=== PATIENT | male | born 1955 | race Caucasian/White ===

== ENCOUNTER 2016-07-18 12:01 | Emergency (ER) | payer OTHER ==
[~2016-07-18] VITALS: Ht 180.3 cm; Wt 107.5 kg
[~2016-07-18 12:01] MED LIST: ASPI325T45 PO; HYT/2 PO
[2016-07-18 12:08] VITALS: TEMP 36.6; Ht 180.3 cm; Wt 107.5 kg
[2016-07-18] MEDS ORDERED: PANT40TA PO (12:57)
--- NOTE | 2016-07-18 13:22 | EMERGENCY ROOM VISIT NOTE ---
History Report prepared by Gracyibmalick: Candace Castrejon Under the Supervision of: Gail LaguerreO. First contact with patient: 13:03 Chief Complaint: HEADACHE Stated Complaint: N, MIGRAINE, NUMBNESS IN FACE, HANDS, CHEST PAIN History of Present Illness The patient is a 60 year old male who presents to the Emergency Room with complaints of an improving headache that began last night. His headache worsened when he got to work this morning so he took 3 Advil. The pain was located at the top and sides of his head. While he was at work he also noticed tingling in his lips, tongue, hands, and feet. He did not have trouble moving his hands or feet. He became nauseated as well. To help the nausea, he took deep breaths. The patient decided to come to the ER when he developed dull midsternal chest pain and some shortness of breath. It does not radiate or worsen with exertion. He has not noticed his heart racing. The chest pain began about 4 hours ago. He still has a dull pain in his chest. He also notes that his hands "don't feel right." The patient notes that he has had a similar set of symptoms in 2010 that started with a headache. He is not medicated for headaches as he does not get them frequently. The patient has borderline high cholesterol. His blood pressure is typically normal if he sleeps well. He reports getting plenty of sleep last night. Denies fevers, visual changes, or other complaints. He takes aspirin on a routine basis, most recently this morning. He is not a smoker. . Source of History: patient Onset: last night Position: head Timing: other (improving) Associated Symptoms: + SOB, + chest pain, + nausea, No fevers Note: Other symptoms: tingling in lips, tongue, hands, feet Review of Systems See HPI for pertinent positives & negatives. A total of 10 systems reviewed and were otherwise negative. Past Medical & Surgical Surgical Problems: (1) Bladder mass (2) S/P tonsillectomy Family History FH: heart disease Hypertension Father of a CVA in his mid eighties Social History Smoking Status: Never Smoker Alcohol Use: occasionally Marital Status: Housing Status: lives with family Occupation Status: employed Current/Historical Medications Scheduled Pantoprazole (Protonix), 40 MG PO DAILY Terazosin Hcl (Hytrin), 4 MG PO DAILY Scheduled PRN Aspirin (Aspirin), 325 MG PO DIRECTED PRN for Pain Lorazepam (Ativan), 0.5 MG SL Q6 PRN for Anxiety/Agitation Tramadol Hcl (Ultram), 50 MG PO Q4H PRN for Pain Allergies Coded Allergies: Penicillins (Unverified Allergy, Unknown, UNKNOWN-CHILDHOOD ALLERGY, ) Physical Exam Vital Signs Date Time Temp Pulse Resp B/P Pulse Ox O2 Delivery O2 Flow Rate FiO2 07/18/16 15:10 67 18 149/98 97 07/18/16 14:20 67 18 149/98 95 Room Air 07/18/16 13:43 95 Room Air 07/18/16 13:43 70 18 141/98 95 Room Air 07/18/16 13:40 68 07/18/16 12:08 36.6 85 18 165/100 96 Room Air Physical Exam GENERAL: The patient is a pleasant, anxious appearing 60 year old male in no acute distress. VITALS: Afebrile, hypertensive, normal pulse oximetry on room air. EYES: PERRL, EOMI, conjunctiva clear EARS: TMs clear THROAT: No pharyngeal injection, exudates, or tonsillar hypertrophy. Airway is patent. NECK: Supple, nontender, no lymphadenopathy or nuchal rigidity. THORAX : Symmetrical and nontender to palpation without deformity or palpable crepitus. LUNGS : Clear without wheezing, rhonchi, or rales HEART: Regular rate and rhythm ABDOMEN: Soft and nontender without guarding, rigidity, or rebound tenderness. Bowel sounds are present in all 4 quadrants. There are no palpable masses or organomegaly. No CVA tenderness. Femoral pulses are symmetrical EXTREMITIES : Without deformity or point tenderness. There are no palpable cords, edema, or erythema.. NEUROLOGIC: Intact without focal deficits Medical Decision & Procedures ER Provider Diagnostic Interpretation: Radiology results as stated below per my review and radiologist interpretation: CHEST ONE VIEW PORTABLE CLINICAL HISTORY: Atypical chest pain and shortness of breath COMPARISON STUDY: 02/24/2016 FINDINGS: The cardiac and mediastinal contours are normal. There is no evidence of focal pulmonary consolidation. There is no evidence of failure. No pleural effusions are visualized.[ IMPRESSION: No active disease in the chest. Electronically signed by: Ha Clifford M.D. 07/18/2016 1:37 PM Dictated Date/Time: 07/18/2016 1:37 PM Laboratory Results 07/18/16 13:32 Red Blood Count 5.03, Mean Corpuscular Volume 88.7, Mean Corpuscular Hemoglobin 31.8, Mean Corpuscular Hemoglobin Concent 35.9, Mean Platelet Volume 10.4, Neutrophils (%) (Auto) 61.2, Lymphocytes (%) (Auto) 27.3, Monocytes (%) (Auto) 7.4, Eosinophils (%) (Auto) 3.3, Basophils (%) (Auto) 0.4, Neutrophils # (Auto) 2.82, Lymphocytes # (Auto) 1.26, Monocytes # (Auto) 0.34, Eosinophils # (Auto) 0.15, Basophils # (Auto) 0.02 07/18/16 13:32 Test 07/18/16 13:32 07/18/16 13:49 White Blood Count 4.61 K/uL (4.8-10.8) Red Blood Count 5.03 M/uL (4.7-6.1) Hemoglobin 16.0 g/dL (14.0-18.0) Hematocrit 44.6 % (42-52) Mean Corpuscular Volume 88.7 fL (80-100) Mean Corpuscular Hemoglobin 31.8 pg (25-34) Mean Corpuscular Hemoglobin Concent 35.9 g/dl (32-36) Platelet Count 174 K/uL (130-400) Mean Platelet Volume 10.4 fL (7.4-10.4) Neutrophils (%) (Auto) 61.2 % Lymphocytes (%) (Auto) 27.3 % Monocytes (%) (Auto) 7.4 % Eosinophils (%) (Auto) 3.3 % Basophils (%) (Auto) 0.4 % Neutrophils # (Auto) 2.82 K/uL (1.4-6.5) Lymphocytes # (Auto) 1.26 K/uL (1.2-3.4) Monocytes # (Auto) 0.34 K/uL (0.11-0.59) Eosinophils # (Auto) 0.15 K/uL (0-0.5) Basophils # (Auto) 0.02 K/uL (0-0.2) RDW Standard Deviation 41.6 fL (36.4-46.3) RDW Coefficient of Variation 12.8 % (11.5-14.5) Immature Granulocyte % (Auto) 0.4 % Immature Granulocyte # (Auto) 0.02 K/uL (0.00-0.02) Anion Gap 8.0 mmol/L (3-11) Est Creatinine Clear Calc Drug Dose 73.5 ml/min Estimated GFR () 67.8 Estimated GFR (Non- 58.5 BUN/Creatinine Ratio 17.4 (10-20) Calcium Level 9.1 mg/dl (8.5-10.1) Magnesium Level 2.1 mg/dl (1.8-2.4) Total Creatine Kinase 157 U/L (39-308) Creatine Kinase MB 3.4 ng/ml (0.5-3.6) Creatine Kinase MB Ratio 2.2 (0-3.0) Bedside Troponin I 0.000 ng/ml (0-0.045) Laboratory studies as stated above per my review. ECG Indication: chest pain Rate (beats per minute): 64 Rhythm: normal sinus Findings: no acute ischemic change, other (no arrhythmia) ED Course 1308: The patient was evaluated in room B5. A complete history and physical examination was performed.He denied continued headache On examination he appeared extremely anxious and was complaining of paresthesias in the circumoral area as well as hand and feet associated with chest pain. Symptoms were felt to be secondary to hyperventilation/anxiety. He declined anti- anxiety meds or pain meds. He underwent the above diagnostic workup. Twelve- lead EKG did not show any acute changes. Chest x-ray was negative. CK CK MB and Troponin were normal and not suggestive of ischemia. CBC and PRP were within normal limits. On reexamination the patient's hypertension has improved and he is more comfortable. He has been reassured. Regarding his headache , it seems to be transient and he has had similar symptoms in the past. At this time I do not suspect that he has acute intracranial pathology although if he continues to have persistent headaches he will need to have further workup.. He does not have any findings to suggest CVA. His symptoms are not felt to be cardiac in etiology. The patient is being discharged home with instructions on symptomatic care. He has been provided prescriptions for a limited number of Ultram and Ativan to use as needed. He should have close outpatient follow-up with his personal physician. Return if worsening symptoms or concerns. The patient is comfortable with this treatment plan. 1450: Reevaluated the patient. He was resting comfortably. Discussed results and discharge instructions; he verbalized understanding and agreement. The patient was discharged home. Medical Decision EMR, nurse's notes, diagnostic studies personally reviewed Differential diagnosis-see above The chart was completed utilizing [employer] Speech Voice Recognition Software. Grammatical errors, random word insertions, pronoun errors, and incomplete sentences are an occasional consequence of this system due to software limitations, ambient noise, and hardware issues. Any formal questions or concerns about the content, text, or information contained within the body of this dictation should be directly addressed to the physician for clarification. Impression Primary Impression: Substernal chest pain Additional Impressions: Hyperventilation syndrome Headache Scribe Attestation The scribe's documentation has been prepared under my direction and personally reviewed by me in its entirety. I confirm that the note above accurately reflects all work, treatment, procedures, and medical decision making performed by me. Departure Information Dispostion Home / Self-Care Prescriptions Lorazepam (ATIVAN) 0.5 Mg Tab 0.5 MG SL Q6 Y for Anxiety/Agitation, #4 TAB Prov: Raquel MiguelD.O. 07/18/16 Tramadol Hcl (ULTRAM) 50 Mg Tab 50 MG PO Q4H Y for Pain, #4 TAB PRN PAIN Prov: Raquel MiguelD.O. 07/18/16 Referrals No Doctor, Assigned (PCP) Forms HOME CARE DOCUMENTATION FORM, IMPORTANT VISIT INFORMATION Patient Instructions Chest Pain - [facility], ED Hyperventilation Syndrome, Headache Pain, My [facility] Additional Instructions Rest today, keep well-hydrated Take Tylenol and/or ibuprofen for recurrent headache May take 1 Ultram every 4-6 hours for severe pain 1 Ativan, dissolve on your tongue, every 6 hours as needed for recurrent anxiety /numbness Follow-up with your family doctor Return if worsening symptoms or concerns Problem Qualifiers
--- NOTE | 2016-07-18 13:38 | DIAGNOSTIC IMAGING REPORT ---
CHEST ONE VIEW PORTABLE CLINICAL HISTORY: Atypical chest pain and shortness of breath COMPARISON STUDY: 02/24/2016 FINDINGS: The cardiac and mediastinal contours are normal. There is no evidence of focal pulmonary consolidation. There is no evidence of failure. No pleural effusions are visualized.[ IMPRESSION: No active disease in the chest. Electronically signed by: Ha Clifford M.D. 07/18/2016 1:37 PM Dictated Date/Time: 07/18/2016 1:37 PM
[2016-07-18 13:43] VITALS: O2SAT 95
[2016-07-18 13:51] LABS: BASO % 0.4 %; BASO ABS # 0.02 K/uL (0-0.2); COMPLETE YES; EOS % 3.3 %; HEMATOCRIT 44.6 % (42-52); IG% 0.4 %; LYMPH % 27.3 %; LYMPH ABS # 1.26 K/uL (1.2-3.4); MEAN CELL VOLUME 88.7 fL (80-100); MEAN CORPUSCULAR HEMOGLOBIN 31.8 pg (25-34); MEAN CORPUSCULAR HGB CONC 35.9 g/dl (32-36); MEAN PLATELET VOLUME 10.4 fL (7.4-10.4); MONO % 7.4 %; NEUT % 61.2 %; PLATELET COUNT 174 K/uL (130-400); RED BLOOD COUNT 5.03 M/uL (4.7-6.1); WHITE BLOOD COUNT 4.61 K/uL (4.8-10.8)
[2016-07-18 14:16] LABS: BUN/CREATININE RATIO 17.4 (10-20); CALCIUM 9.1 mg/dl (8.5-10.1); CREATININE 1.3 mg/dl (0.60-1.40); MAGNESIUM 2.1 mg/dl (1.8-2.4); POTASSIUM 4.1 mmol/L (3.5-5.1)
[2016-07-18 14:20] LABS: CKMB/CK RATIO 2.2 (0-3.0)
[2016-07-18] MEDS ORDERED: LORA-741 SL (14:45)
[2016-07-18] MEDS ORDERED: TRAM-453 PO (14:45)
[2016-07-18 15:10] VITALS: BP 149/98; PULSE 67; O2SAT 97
== END 2016-07-18 15:11 | disposition home or self-care (01) ==
LOC: C.EDB 12:02
DX: R07.2 Precordial pain (principal); R51 Headache; F45.8 Other somatoform disorders; F41.9 Anxiety disorder, unspecified; R03.0 Elevated blood-pressure reading, without diagnosis of hypertension; Z82.3 Family history of stroke

== ENCOUNTER 2022-08-24 00:06 | Inpatient (IN) ==
[2022-08-24] MEDS ORDERED: ONDANSETRON INJ 2 MG/ML 2 ML VIAL ONE (00:19)
[2022-08-24] MEDS ORDERED: ONDANSETRON INJ 2 MG/ML 2 ML VIAL IV STA (00:38)
[2022-08-24] MEDS ORDERED: SODIUM CHLORIDE 0.9% 1000ML 1,000 ML IV SCH (00:45)
--- NOTE | 2022-08-24 00:54 | Emergency Department Note ---
Impression & Plan Acute dehydration, Pre-syncope, Dizziness ED Provider Note NAME: JULIAN ZUNIGA AGE: 66 SEX: M : 1955 ARRIVES VIA: Ambulance INFORMANT: Patient, ED PROVIDER(S): Rich Miner MD CHIEF COMPLAINT: Near syncope MEDICAL DECISION MAKING: Patient presents due to concern for near syncope. IV was established blood work was obtained and the patient did have IV fluids ordered in addition to Zofran. A chest and abdominal series also ordered. The patient's blood work shows a a normal white count. Patient's hemoglobin 1 2.8. Normal platelet count. Kidney function is unremarkable with significant prerenal azotemia. Patient was ordered additional IV fluids. Patient's chest and abdominal series does not show any obvious pneumoperitoneum. Gastric bubble noted. The patient was feeling a bit better but still had some mild dizziness. Given the patient's recent procedure and dizziness with several episodes of presyncope I did speak with the on-call hospitalist service and the patient was admitted by Dr. Casey. 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 Differential diagnosis: Vasovagal event, dehydration, infection, hypoglycemia, electrolyte abnormalities, cardiac sources, intracerebral event, pulmonary embolism, seizure, toxicologic, neurologic, as well as other pathologies. Diagnostics, as interpreted by me: ECG: He sinus tachycardia with first-degree AV block, rate of 104 prolonged NE normal QRS normal axis. No ST elevations. Cardiac monitoring: An order was placed for continuous cardiac monitoring. The monitor shows a rate of 95 with sinus rhythm. Patient was placed on pulse oximetry Medical decision rules: None Imaging studies: See below I informally reviewed the patient's chest and abdominal series that shows no obvious evidence of free air or pneumothorax. HPI: Patient presents due to concern for near syncope. The patient states that he had gotten up to use restroom got very lightheaded dizzy and felt like everything was going go black and then he got to his knees. The patient states that he did then decided to go to bed. The patient states that he felt as though he was getting get sick and started to hyperventilate did feel short of breath at that time. Also they did call the ambulance. The patient did have an endoscopy completed today with Dr. Rader in the outpatient surgical center at [facility]. Patient states they were unable to take the Carafate which she was prescribed because nobody had any of the pills that he was post to crush up. Patient denies any active vomiting. The patient does still have some mild nausea and GI upset. Patient has not had a bowel movement since he had his procedure. No reported blood in the urine or stool. PAST MEDICAL HISTORY: See Below PAST SURGICAL HISTORY: See Below SOCIAL HISTORY: See Below HOME MEDICATIONS: See Below ALLERGIES: See Below VITALS: See Below PHYSICAL EXAMINATION: GENERAL: NAD, wearing a mask, non-toxic. EYE EXAM: Normal conjunctiva. PERRL, no anisocoria and EOM's grossly intact w/o pain. NECK: Supple, no nuchal rigidity, no adenopathy, non-tender. No signs of meningismus. FROM of the neck with good chin to chest and neck extension. No stridor. LUNGS: Clear to auscultation. Normal chest wall mechanics. HEART: NSR, no MRG. ABDOMEN: Abdomen soft, non-tender, no masses, no rebound or guarding. BACK: No CVA TTP. SKIN: No rashes and no bruising. UPPER EXTREMITIES: Upper extremities are grossly normal. LOWER EXTREMITIES: Grossly normal, no edema. NEURO EXAM: A&O x3, cranial nerves II-XII grossly intact, normal speech, moves all 4 extremities. Past Med/Surg History Medical History Peterson esophagus Dyslipidemia GERD (gastroesophageal reflux disease) Paroxysmal atrial fibrillation Surgical History H/O esophagogastroduodenoscopy Social History Smoking Status: Never smoker Hx Alcohol Use: Yes Hx Substance Use: No Preferred Language: Sami Communication Ability: Effective marital status: Current Living Situation: Alone and Spouse Other Information That Helps Us Care for You: No Feels Safe at Home: No Is there a partner from a previous relationship who is making you feel unsafe now?: No Any Concerns about Your Family Situation: No Would You Like to Speak to Someone About Your Situation: No Safety Concerns: Feels Safe At This Time Assistive Devices: CPAP Allergies Allergies Allergy/AdvReac Type Severity Reaction Status Date / Time flaxseed Allergy edema Verified 08/24/22 00:56 petroleum distillate Allergy Severe Anaphylaxis Uncoded 08/24/22 00:55 Home Meds Home Medications Medication Instructions Recorded Confirmed aspirin 81 mg tablet,delayed 81 mg PO DAILY 01/12/19 08/24/22 release (Raghu Low Dose Aspirin) vitamin B complex 1 cap PO QAM 01/12/19 08/24/22 amlodipine 2.5 mg tablet 2.5 mg PO QAM 08/24/22 08/24/22 cholecalciferol (vitamin D3) 125 125 mcg PO QAM 08/24/22 08/24/22 mcg (5,000 unit) tablet (Vitamin D3) epinephrine 0.3 mg/0.3 mL 0.3 mg IM UD PRN Anaphylaxis 08/24/22 08/24/22 injection, auto-injector evening primrose oil 500 mg capsule 500 mg PO HS 08/24/22 08/24/22 fluticasone propionate 50 2 spray intranasal DAILY PRN 08/24/22 08/24/22 mcg/actuation nasal allergies spray,suspension pantoprazole 40 mg tablet,delayed 40 mg PO DAILYBB 08/24/22 08/24/22 release polyethylene glycol 3350 17 gram 8.5 g PO BID 08/24/22 08/24/22 oral powder packet (Miralax) rosuvastatin 10 mg tablet 10 mg PO QAM 08/24/22 08/24/22 sucralfate 1 gram tablet (Carafate) 1 g PO ACHS 08/24/22 08/24/22 terazosin 5 mg capsule 5 mg PO HS 08/24/22 08/24/22 vit A 7,160 unit-C 113 mg-E 100 1 tab PO BID 08/24/22 08/24/22 [id number] tablet,delayed rel. vitamin K2 (MK-4) 100 mcg tablet 100 mcg PO HS 08/24/22 08/24/22 Results & Data (ED) Vital Signs Vital Signs - 24 hr 08/24/22 00:18 08/24/22 00:20 08/24/22 00:30 Temperature 36.9 C Temperature Source Oral Pulse Rate 102 H 104 H 101 H Pulse Rate [Apical] Pulse Rate from SpO2 Sensor 101 H Pulse Rhythm Regular Pulse Rhythm [Apical] Pulse Strength Normal Respiratory Rate 18 22 Respiratory Effort / Characteristics Non-Labored Spontaneous Respiratory Depth Normal Respiratory Pattern Regular Blood Pressure 112/69 100/65 Blood Pressure [Right Arm] Blood Pressure Mean 83 76 Blood Pressure Mean [Right Arm] Blood Pressure Position Lying Pulse Oximetry 96 96 Pulse Oximetry [Right Index Finger] Oxygen Delivery Method Room Air Oxygen Delivery Method [Right Index Finger] Sepsis Recent Fever Within 48 Hours No Sepsis New/Unexplained Change in Mental Status N/A Sepsis Action Taken by Nursing No Action Required 08/24/22 01:30 08/24/22 02:00 08/24/22 02:30 Temperature Temperature Source Pulse Rate 86 105 H 91 H Pulse Rate [Apical] Pulse Rate from SpO2 Sensor 86 104 H 92 H Pulse Rhythm Pulse Rhythm [Apical] Pulse Strength Respiratory Rate 22 16 22 Respiratory Effort / Characteristics Respiratory Depth Respiratory Pattern Blood Pressure 113/75 108/61 91/44 L Blood Pressure [Right Arm] Blood Pressure Mean 87 76 59 Blood Pressure Mean [Right Arm] Blood Pressure Position Pulse Oximetry 94 96 96 Pulse Oximetry [Right Index Finger] Oxygen Delivery Method Room Air Oxygen Delivery Method [Right Index Finger] Sepsis Recent Fever Within 48 Hours Sepsis New/Unexplained Change in Mental Status Sepsis Action Taken by Nursing 08/24/22 02:56 08/24/22 03:00 08/24/22 04:22 Temperature Temperature Source Pulse Rate 88 107 H 88 Pulse Rate [Apical] Pulse Rate from SpO2 Sensor 92 H 106 H Pulse Rhythm Pulse Rhythm [Apical] Pulse Strength Respiratory Rate 16 13 Respiratory Effort / Characteristics Respiratory Depth Respiratory Pattern Blood Pressure 124/66 122/64 Blood Pressure [Right Arm] Blood Pressure Mean 85 83 Blood Pressure Mean [Right Arm] Blood Pressure Position Pulse Oximetry 95 97 Pulse Oximetry [Right Index Finger] Oxygen Delivery Method Oxygen Delivery Method [Right Index Finger] Sepsis Recent Fever Within 48 Hours Sepsis New/Unexplained Change in Mental Status Sepsis Action Taken by Nursing 08/24/22 04:59 08/24/22 07:09 08/24/22 07:52 Temperature Temperature Source Pulse Rate 82 Pulse Rate [Apical] 85 82 Pulse Rate from SpO2 Sensor Pulse Rhythm Pulse Rhythm [Apical] Regular Pulse Strength Respiratory Rate 22 16 Respiratory Effort / Characteristics Non-Labored Spontaneous Non-Labored Spontaneous Respiratory Depth Normal Normal Respiratory Pattern Regular Blood Pressure Blood Pressure [Right Arm] 110/70 118/68 Blood Pressure Mean Blood Pressure Mean [Right Arm] 83 84 Blood Pressure Position Pulse Oximetry 93 95 Pulse Oximetry [Right Index Finger] Oxygen Delivery Method Room Air Room Air Oxygen Delivery Method [Right Index Finger] Sepsis Recent Fever Within 48 Hours Sepsis New/Unexplained Change in Mental Status Sepsis Action Taken by Nursing 08/24/22 08:15 08/24/22 08:16 08/24/22 10:49 Temperature Temperature Source Pulse Rate Pulse Rate [Apical] 94 H 100 H Pulse Rate from SpO2 Sensor Pulse Rhythm Pulse Rhythm [Apical] Pulse Strength Respiratory Rate 18 18 Respiratory Effort / Characteristics Non-Labored Spontaneous Non-Labored Spontaneous Respiratory Depth Normal Normal Respiratory Pattern Blood Pressure Blood Pressure [Right Arm] 136/68 115/88 Blood Pressure Mean Blood Pressure Mean [Right Arm] 90 97 Blood Pressure Position Pulse Oximetry 99 96 Pulse Oximetry [Right Index Finger] 99 Oxygen Delivery Method Room Air Room Air Oxygen Delivery Method [Right Index Finger] Room Air Sepsis Recent Fever Within 48 Hours Sepsis New/Unexplained Change in Mental Status Sepsis Action Taken by [facility] Medications Current Medication List: was personally reviewed by me Laboratory Data Attestation: I reviewed the patient's lab results. 08/24/22 00:31 08/24/22 00:31 Lab Results 08/24/22 08/24/22 08/24/22 Range/Units 00:31 00:31 00:31 WBC 9.21 (4.8-10.8) K/ul RBC 4.03 L (4.70-6.10) M/uL Hgb 12.8 L (14.0-18.0) g/dl Hct 36.7 L (42.0-52.0) % MCV 91.1 (80.0-100.0) fL MCH 31.8 (25.0-34.0) pg MCHC 34.9 (32.0-36.0) g/dL RDW Std Deviation 40.8 (36.4-46.3) fL RDW Coeff of Sana 12.4 (11.5-14.5) % Plt Count 169 (130-400) K/uL MPV 10.6 (9.4-12.4) fL Immature Gran % (Auto) 0.3 % Neut % (Auto) 74.8 % Lymph % (Auto) 17.0 % [place] % (Auto) 6.5 % Eos % (Auto) 1.1 % Baso % (Auto) 0.3 % Reticulocyte % (Auto) (0.5-2.0) % Neut # (Auto) 6.88 H (1.40-6.50) K/uL Lymph # (Auto) 1.57 (1.2-3.4) K/uL [place] # (Auto) 0.60 H (0.11-0.59) K/uL Eos # (Auto) 0.10 (0-0.50) K/uL Baso # (Auto) 0.03 (0-0.2) K/uL Reticulocyte # (0.02-0.10) 10^6/uL Immature Gran # (Auto) 0.03 (0.01-0.20) K/uL Sodium 137 (136-145) mmol/L Potassium 4.4 (3.5-5.1) mmol/L Chloride 108 H (98-107) mmol/L Carbon Dioxide 22 (21-32) mmol/L Anion Gap 7 (3-11) BUN 45 H (6-23) mg/dl Creatinine 1.01 (0.6-1.4) mg/dl Est Cr Clr Drug Dosing 86.5 ml/min Est GFR ( Amer) 88.2 ml/min Est GFR (Non-Af Amer) 76.1 ml/min BUN/Creatinine Ratio 44.6 H (10-20) Glucose 147 H (70-99(Fasting)) mg/dl Lactate (0.4-2.0) mmol/L Calcium 8.2 L (8.6-10.3) mg/dl Magnesium 1.6 L (1.7-2.4) mg/dl Iron (35-175) mcg/dl Transferrin (200-360) mg/dl Ferritin (8-388) ng/ml Total Bilirubin 0.8 (0.2-1.0) mg/dl AST 17 (13-39) U/L ALT 17 (7-52) U/L Alkaline Phosphatase 38 (34-104) U/L Troponin I High Sens 6.3 (0-20) pg/ml Total Protein 5.8 L (6.0-8.3) gm/dl Albumin 3.6 (3.4-5.0) gm/dl Globulin 2.2 L (2.5-4.0) gm/dl Albumin/Globulin Ratio 1.6 (0.9-2) Lipase 24 (11-82) U/L Vitamin B12 (180-914) pg/ml Folate (>5.38) ng/ml TSH 0.881 (0.300-4.500) uIu/ml Urine Color Urine Appearance (Clear) Urine pH (4.5-7.5) Ur Specific Scott (1.000-1.030) Urine Protein (Negative) Urine Glucose (UA) (Negative) Urine Ketones (Negative) Urine Blood (Negative) Urine Nitrite (Negative) Urine Bilirubin (Negative) Urine Urobilinogen (Negative) Ur Leukocyte Esterase (Negative) SARS-CoV-2, RNA, NAAT (NEGATIVE) Blood Type Antibody Screen 08/24/22 08/24/22 08/24/22 Range/Units 02:05 02:46 06:59 WBC (4.8-10.8) K/ul RBC (4.70-6.10) M/uL Hgb (14.0-18.0) g/dl Hct (42.0-52.0) % MCV (80.0-100.0) fL MCH (25.0-34.0) pg MCHC (32.0-36.0) g/dL RDW Std Deviation (36.4-46.3) fL RDW Coeff of Sana (11.5-14.5) % Plt Count (130-400) K/uL MPV (9.4-12.4) fL Immature Gran % (Auto) % Neut % (Auto) % Lymph % (Auto) % [place] % (Auto) % Eos % (Auto) % Baso % (Auto) % Reticulocyte % (Auto) (0.5-2.0) % Neut # (Auto) (1.40-6.50) K/uL Lymph # (Auto) (1.2-3.4) K/uL [place] # (Auto) (0.11-0.59) K/uL Eos # (Auto) (0-0.50) K/uL Baso # (Auto) (0-0.2) K/uL Reticulocyte # (0.02-0.10) 10^6/uL Immature Gran # (Auto) (0.01-0.20) K/uL Sodium (136-145) mmol/L Potassium (3.5-5.1) mmol/L Chloride (98-107) mmol/L Carbon Dioxide (21-32) mmol/L Anion Gap (3-11) BUN (6-23) mg/dl Creatinine (0.6-1.4) mg/dl Est Cr Clr Drug Dosing ml/min Est GFR ( Amer) ml/min Est GFR (Non-Af Amer) ml/min BUN/Creatinine Ratio (10-20) Glucose (70-99(Fasting)) mg/dl Lactate (0.4-2.0) mmol/L Calcium (8.6-10.3) mg/dl Magnesium (1.7-2.4) mg/dl Iron (35-175) mcg/dl Transferrin (200-360) mg/dl Ferritin (8-388) ng/ml Total Bilirubin (0.2-1.0) mg/dl AST (13-39) U/L ALT (7-52) U/L Alkaline Phosphatase (34-104) U/L Troponin I High Sens (0-20) pg/ml Total Protein (6.0-8.3) gm/dl Albumin (3.4-5.0) gm/dl Globulin (2.5-4.0) gm/dl Albumin/Globulin Ratio (0.9-2) Lipase (11-82) U/L Vitamin B12 (180-914) pg/ml Folate (>5.38) ng/ml TSH (0.300-4.500) uIu/ml Urine Color Yellow Urine Appearance Clear (Clear) Urine pH 5.5 (4.5-7.5) Ur Specific Scott 1.027 (1.000-1.030) Urine Protein Negative (Negative) Urine Glucose (UA) Negative (Negative) Urine Ketones 1+ H (Negative) Urine Blood Negative (Negative) Urine Nitrite Negative (Negative) Urine Bilirubin Negative (Negative) Urine Urobilinogen Negative (Negative) Ur Leukocyte Esterase Negative (Negative) SARS-CoV-2, RNA, NAAT NEGATIVE (NEGATIVE) Blood Type A Positive Antibody Screen NEGATIVE 08/24/22 08/24/22 08/24/22 Range/Units 06:59 06:59 06:59 WBC (4.8-10.8) K/ul RBC (4.70-6.10) M/uL Hgb 11.4 L (14.0-18.0) g/dl Hct 32.8 L (42.0-52.0) % MCV (80.0-100.0) fL MCH (25.0-34.0) pg MCHC (32.0-36.0) g/dL RDW Std Deviation (36.4-46.3) fL RDW Coeff of Sana (11.5-14.5) % Plt Count (130-400) K/uL MPV (9.4-12.4) fL Immature Gran % (Auto) % Neut % (Auto) % Lymph % (Auto) % [place] % (Auto) % Eos % (Auto) % Baso % (Auto) % Reticulocyte % (Auto) 1.8 (0.5-2.0) % Neut # (Auto) (1.40-6.50) K/uL Lymph # (Auto) (1.2-3.4) K/uL [place] # (Auto) (0.11-0.59) K/uL Eos # (Auto) (0-0.50) K/uL Baso # (Auto) (0-0.2) K/uL Reticulocyte # 0.06 (0.02-0.10) 10^6/uL Immature Gran # (Auto) (0.01-0.20) K/uL Sodium (136-145) mmol/L Potassium (3.5-5.1) mmol/L Chloride (98-107) mmol/L Carbon Dioxide (21-32) mmol/L Anion Gap (3-11) BUN (6-23) mg/dl Creatinine (0.6-1.4) mg/dl Est Cr Clr Drug Dosing ml/min Est GFR ( Amer) ml/min Est GFR (Non-Af Amer) ml/min BUN/Creatinine Ratio (10-20) Glucose (70-99(Fasting)) mg/dl Lactate 1.1 (0.4-2.0) mmol/L Calcium (8.6-10.3) mg/dl Magnesium (1.7-2.4) mg/dl Iron 60 (35-175) mcg/dl Transferrin 169 L (200-360) mg/dl Ferritin 75.5 (8-388) ng/ml Total Bilirubin (0.2-1.0) mg/dl AST (13-39) U/L ALT (7-52) U/L Alkaline Phosphatase (34-104) U/L Troponin I High Sens (0-20) pg/ml Total Protein (6.0-8.3) gm/dl Albumin (3.4-5.0) gm/dl Globulin (2.5-4.0) gm/dl Albumin/Globulin Ratio (0.9-2) Lipase (11-82) U/L Vitamin B12 (180-914) pg/ml Folate (>5.38) ng/ml TSH (0.300-4.500) uIu/ml Urine Color Urine Appearance (Clear) Urine pH (4.5-7.5) Ur Specific Scott (1.000-1.030) Urine Protein (Negative) Urine Glucose (UA) (Negative) Urine Ketones (Negative) Urine Blood (Negative) Urine Nitrite (Negative) Urine Bilirubin (Negative) Urine Urobilinogen (Negative) Ur Leukocyte Esterase (Negative) SARS-CoV-2, RNA, NAAT (NEGATIVE) Blood Type Antibody Screen 08/24/22 Range/Units 06:59 WBC (4.8-10.8) K/ul RBC (4.70-6.10) M/uL Hgb (14.0-18.0) g/dl Hct (42.0-52.0) % MCV (80.0-100.0) fL MCH (25.0-34.0) pg MCHC (32.0-36.0) g/dL RDW Std Deviation (36.4-46.3) fL RDW Coeff of Sana (11.5-14.5) % Plt Count (130-400) K/uL MPV (9.4-12.4) fL Immature Gran % (Auto) % Neut % (Auto) % Lymph % (Auto) % [place] % (Auto) % Eos % (Auto) % Baso % (Auto) % Reticulocyte % (Auto) (0.5-2.0) % Neut # (Auto) (1.40-6.50) K/uL Lymph # (Auto) (1.2-3.4) K/uL [place] # (Auto) (0.11-0.59) K/uL Eos # (Auto) (0-0.50) K/uL Baso # (Auto) (0-0.2) K/uL Reticulocyte # (0.02-0.10) 10^6/uL Immature Gran # (Auto) (0.01-0.20) K/uL Sodium (136-145) mmol/L Potassium (3.5-5.1) mmol/L Chloride (98-107) mmol/L Carbon Dioxide (21-32) mmol/L Anion Gap (3-11) BUN (6-23) mg/dl Creatinine (0.6-1.4) mg/dl Est Cr Clr Drug Dosing ml/min Est GFR ( Amer) ml/min Est GFR (Non-Af Amer) ml/min BUN/Creatinine Ratio (10-20) Glucose (70-99(Fasting)) mg/dl Lactate (0.4-2.0) mmol/L Calcium (8.6-10.3) mg/dl Magnesium (1.7-2.4) mg/dl Iron (35-175) mcg/dl Transferrin (200-360) mg/dl Ferritin (8-388) ng/ml Total Bilirubin (0.2-1.0) mg/dl AST (13-39) U/L ALT (7-52) U/L Alkaline Phosphatase (34-104) U/L Troponin I High Sens (0-20) pg/ml Total Protein (6.0-8.3) gm/dl Albumin (3.4-5.0) gm/dl Globulin (2.5-4.0) gm/dl Albumin/Globulin Ratio (0.9-2) Lipase (11-82) U/L Vitamin B12 629 (180-914) pg/ml Folate 5.18 L (>5.38) ng/ml TSH (0.300-4.500) uIu/ml Urine Color Urine Appearance (Clear) Urine pH (4.5-7.5) Ur Specific Scott (1.000-1.030) Urine Protein (Negative) Urine Glucose (UA) (Negative) Urine Ketones (Negative) Urine Blood (Negative) Urine Nitrite (Negative) Urine Bilirubin (Negative) Urine Urobilinogen (Negative) Ur Leukocyte Esterase (Negative) SARS-CoV-2, RNA, NAAT (NEGATIVE) Blood Type Antibody Screen Administered Medications Acetaminophen (Acetaminophen 325 Mg Tab) 650 mg PO Q4H PRN PRN Reason: Pain or Fever Stop: 09/23/22 07:56 Last Admin: 08/24/22 22:03 Dose: 650 mg Documented By: Admin: 08/24/22 16:09 Dose: 650 mg Documented By: JESSIKA Promethazine HCl 12.5 mg/ (Sodium Chloride) 50.5 mls @ 202 mls/hr IV Q6H PRN PRN Reason: Nausea And Vomiting Stop: 09/23/22 05:59 Last Infusion: 08/24/22 06:44 Dose: 0 mls/hr Documented By: Admin: 08/24/22 06:29 Dose: 202 mls/hr Documented By: MICHI Pantoprazole Sodium 40 mg/ (Dextrose) 100 mls @ 20 mls/hr IV Q5H DEBORAH Stop: 09/23/22 13:14 Last Admin: 08/24/22 21:38 Dose: 8 mg/hr, 20 mls/hr Documented By: Infusion: 08/24/22 19:51 Dose: 0 mg/hr, 0 mls/hr Documented By: Admin: 08/24/22 14:08 Dose: 8 mg/hr, 20 mls/hr Documented By: JESSIKA Dextrose/Sodium Chloride (D5w And Nss) 1,000 mls @ 100 mls/hr IV .Q10H DEBORAH Stop: 09/23/22 13:09 Last Admin: 08/24/22 14:10 Dose: 100 mls/hr Documented By: JESSIKA Octreotide Acetate 500 mcg/ (Dextrose) 100.5 mls @ 10.05 mls/hr IV .Q10H DEBORAH Stop: 09/23/22 13:29 Last Admin: 08/24/22 22:58 Dose: 50 mcg/hr, 10.1 mls/hr Documented By: Infusion: 08/24/22 22:58 Dose: 50 mcg/hr, 10.1 mls/hr Documented By: Admin: 08/24/22 14:08 Dose: 50 mcg/hr, 10.1 mls/hr Documented By: JESSIKA Erythromycin Lactobionate 500 (mg/ Sodium Chloride) 260 mls @ 250 mls/hr IV QAM DEBORAH Stop: 08/25/22 10:03 Last Infusion: 08/24/22 15:32 Dose: 0 mls/hr Documented By: Admin: 08/24/22 13:30 Dose: 250 mls/hr Documented By: JESSIKA Polyethylene Glycol (Polyethylene (Miralax) 17 Gm Pack) 8.5 gm PO BID DEBORAH Stop: 09/23/22 22:29 Last Admin: 08/24/22 22:43 Dose: 8.5 gm Documented By: SCOTT Sucralfate (Sucralfate 1 Gm/10 Ml Udc) 1 gm PO QID DEBORAH Stop: 09/23/22 08:59 Last Admin: 08/24/22 22:03 Dose: 1 gm Documented By: Admin: 08/24/22 16:09 Dose: 1 gm Documented By: Admin: 08/24/22 12:17 Dose: 1 gm Documented By: Admin: 08/24/22 09:41 Dose: 1 gm Documented By: JOHN Discontinued Medications Acetaminophen (Acetaminophen 325 Mg Tab) 650 mg PO NOW STA Stop: 08/24/22 05:56 Last Admin: 08/24/22 06:12 Dose: 650 mg Documented By: MICHI Sodium Chloride (Nss 1000ml) 1,000 mls @ 999 mls/hr IV .Q1H1M DEBORAH Stop: 08/24/22 01:45 Last Infusion: 08/24/22 01:51 Dose: 0 mls/hr Documented By: JESSIKA(2) Admin: 08/24/22 00:44 Dose: 999 mls/hr Documented By: JESSIKA(2) Magnesium Sulfate/Dextrose (Magnesium Sulfate / D5w) 1 gm in 100 mls @ 50 mls/hr IV ONE STA Stop: 08/24/22 04:29 Last Infusion: 08/24/22 04:50 Dose: 0 mls/hr Documented By: Admin: 08/24/22 02:50 Dose: 50 mls/hr Documented By: JESSIKA(2) Sodium Chloride (Nss 1000ml) 1,000 mls @ 100 mls/hr IV .Q10H STA Stop: 08/24/22 12:30 Last Infusion: 08/24/22 13:12 Dose: 0 mls/hr Documented By: Admin: 08/24/22 02:50 Dose: 100 mls/hr Documented By: JESSIKA(2) Pantoprazole Sodium 80 mg/ (Dextrose) 120 mls @ 400 mls/hr IV NOW STA Stop: 08/24/22 06:18 Last Infusion: 08/24/22 06:30 Dose: 0 mls/hr Documented By: Admin: 08/24/22 06:12 Dose: 400 mls/hr Documented By: MICHI Pantoprazole Sodium 80 mg/ (Dextrose) 120 mls @ 400 mls/hr IV NOW ONE Stop: 08/24/22 13:32 Last Infusion: 08/24/22 15:29 Dose: 0 mls/hr Documented By: Admin: 08/24/22 14:09 Dose: 400 mls/hr Documented By: JESSIKA Octreotide Acetate 50 mcg/ (Syringe) 10 mls @ 3 mls/min IV ONE STA Stop: 08/24/22 13:20 Last Admin: 08/24/22 14:08 Dose: 3 mls/min Documented By: JESSIKA Ioversol (Optiray 320 100ml) 100 ml IV ONCE ONE Stop: 08/24/22 03:25 Last Admin: 08/24/22 03:25 Dose: 86 ml Documented By: DOTTIE Ondansetron HCl (Ondansetron Inj 2 Mg/Ml 2 Ml Vial) Confirm Administered Dose 4 mg .ROUTE .STK-MED ONE Stop: 08/24/22 00:20 Last Admin: 08/24/22 01:59 Dose: Not Given Documented By: JESSIKA(2) Ondansetron HCl (Ondansetron Inj 2 Mg/Ml 2 Ml Vial) 4 mg IV NOW STA Stop: 08/24/22 00:39 Last Admin: 08/24/22 00:44 Dose: 4 mg Documented By: JESSIKA(2) Polyethylene Glycol (Polyethylene (Miralax) 17 Gm Pack) 8.5 gm PO BID DEBORAH Stop: 09/23/22 08:59 Last Admin: 08/24/22 08:24 Dose: 8.5 gm Documented By: JOHN Senna/Docusate Sodium (Docusate Sodium/Senna 50/8.6mg Tab) 1 tab PO NOW STA Stop: 08/24/22 05:56 Last Admin: 08/24/22 06:13 Dose: 1 tab Documented By: MICHI Sucralfate (Sucralfate 1 Gm Tab) 1 gm PO ACHS DEBORAH Stop: 09/23/22 07:56 Last Admin: 08/24/22 08:27 Dose: Not Given Documented By: JOHN Vitamin B Complex (Vitamin B Complex Tab) 1 tab PO QAM [facility] Stop: 09/23/22 08:59 Last Admin: 08/24/22 08:24 Dose: 1 tab Documented By: JOHN Imaging Data Radiologist's Impression: Chest/Abdomen X-ray 08/24/22 00:38 PA CHEST RADIOGRAPH AND UPRIGHT AND SUPINE AP RADIOGRAPHS OF THE ABDOMEN CLINICAL HISTORY: Shortness of breath, recent endoscopy COMPARISON STUDY: Chest radiograph December 20, 2021. FINDINGS: Lung volumes are normal. There is no pneumothorax or pleural effusion. Cardiac size is normal. Mediastinal contours are normal. There is no free air. The bowel gas pattern is within normal limits. Moderate amount of stool within the colon is present. No pneumomediastinum is identified by rad iography. IMPRESSION: 1. No free air or evidence of bowel obstruction. 2. No acute cardiopulmonary findings. ACT 112: Negative or not required by law. Electronically signed by: Harpal Chaves M.D. 08/24/2022 8:44 AM Abdomen/Pelvis CT 08/24/22 02:56 Exam(s): CT ABDOMEN + PELVIS With Contrast IV Amt: 86 ML OPTIRAY 320 EXAM: CT Abdomen and Pelvis With Intravenous Contrast CLINICAL HISTORY: Reason for exam: abd pain. TECHNIQUE: Axial computed tomography images of the abdomen and pelvis with intravenous contrast. CTDI is 15.93 mGy and DLP is 861.74 mGy-cm. Automated exposure control was utilized for the study. A dose lowering technique was utilized adhering to the principles of ALARA. CONTRAST: Patient received 86 ML OPTIRAY 320 of IV contrast COMPARISON: No relevant prior studies available. FINDINGS: Lung bases: Unremarkable. No mass. No consolidation. ABDOMEN: Liver: Fatty liver. Subcentimeter cyst seen anteriorly in the right lobe of the liver. Gallbladder and bile ducts: Unremarkable. No calcified stones. No ductal dilation. Pancreas: Unremarkable. No mass. No ductal dilation. Spleen: Unremarkable. No splenomegaly. Adrenals: Unremarkable. No mass. Kidneys and ureters: Unremarkable. No solid mass. No hydronephrosis. Stomach and bowel: Moderate amount of fecal matter is seen in the colon. No obstruction. No mucosal thickening. PELVIS: Appendix: Normal appendix. Bladder: Unremarkable. No mass. Reproductive: Moderate prostatomegaly. ABDOMEN and PELVIS: Intraperitoneal space: Unremarkable. No free air. No significant fluid collection. Bones/joints: Mild degenerative disc disease changes seen in the lumbar spine. No acute fracture. No dislocation. Soft tissues: Unremarkable. Vasculature: Unremarkable. No abdominal aortic aneurysm. Lymph nodes: Unremarkable. No enlarged lymph nodes. IMPRESSION: 1. No acute abdominal process identified 2. Moderate amount of fecal matter in the colon which can be correlated with history of constipation Electronically signed by: Pascual Mccarty MD 08/24/22 06:44 AM Discharge Plan Visit Data Chief Complaint: Illness Stated Complaint: Near Syncope, Dizziness, Light Headed ED Provider: Rich Miner Discharge Problem: Acute dehydration, Pre-syncope, Dizziness Patient Disposition: Admitted As Inpatient Discharge Instructions Interventions: ED Discharge Assessment Last Done: 08/24/22 07:58
[2022-08-24 01:14] LABS: Basophils # (auto) 0.03 K/uL (0-0.2); Basophils % (auto) 0.3 %; Eosinophils % (auto) 1.1 %; Hematocrit (blood only) 36.7 % (42.0-52.0); Hemoglobin 12.8 g/dl (14.0-18.0); Immature Granulocytes # (auto) 0.03 K/uL (0.01-0.20); Immature Granulocytes % (auto) 0.3 %; Lymphocytes # (auto) 1.57 K/uL (1.2-3.4); Mean Corpuscular Hemoglobin 31.8 pg (25.0-34.0); Mean Corpuscular Hgb Conc 34.9 g/dL (32.0-36.0); Mean Corpuscular Volume 91.1 fL (80.0-100.0); Mean Platelet Volume 10.6 fL (9.4-12.4); Monocytes % (auto) 6.5 %; Neutrophils # (auto) 6.88 K/uL (1.40-6.50); Neutrophils % (auto) 74.8 %; Platelet Count 169 K/uL (130-400); RDW Coefficient of Variation 12.4 % (11.5-14.5); RDW Standard Deviation 40.8 fL (36.4-46.3); Red Blood Count 4.03 M/uL (4.70-6.10); White Blood Count 9.21 K/ul (4.8-10.8)
[2022-08-24 01:17] LABS: Albumin Globulin Ratio 1.6 (0.9-2); Albumin Level 3.6 gm/dl (3.4-5.0); BUN Creatinine Ratio 44.6 (10-20); Bilirubin,Total 0.8 mg/dl (0.2-1.0); Calcium 8.2 mg/dl (8.6-10.3); Creatinine Clr Calc Pharmacy 86.5 ml/min; Est GFR (African American) 88.2 ml/min; Est GFR (Non-African American) 76.1 ml/min; Globulin 2.2 gm/dl (2.5-4.0); Magnesium 1.6 mg/dl (1.7-2.4); Potassium 4.4 mmol/L (3.5-5.1); Total Protein 5.8 gm/dl (6.0-8.3)
[2022-08-24 01:24] LABS: Troponin I High Sensitivity 6.3 pg/ml (0-20)
[2022-08-24 02:21] LABS: Appearance Urine Clear (Clear); Bilirubin Urine Negative (Negative); Blood Urine Negative (Negative); Color Urine Yellow; Glucose Urine UA Negative (Negative); Ketones Urine 1+ (Negative); Leukocyte Esterase Urine Negative (Negative); Nitrite Urine Negative (Negative); Protein Urine Negative (Negative); Specific Gravity Urine 1.027 (1.000-1.030); Urobilinogen Urine Negative (Negative); pH Urine 5.5 (4.5-7.5)
[2022-08-24] MEDS ORDERED: MAGNESIUM SULFATE / D5W 1 GM/100 ML BAG IV STA (02:30)
[2022-08-24] MEDS ORDERED: SODIUM CHLORIDE 0.9% 1000ML 1,000 ML IV STA (02:31)
[2022-08-24] MEDS ORDERED: OPTIRAY 320 100ml IV ONE (03:24)
[2022-08-24] MEDS ORDERED: DOCUSATE SODIUM/SENNA 50/8.6MG TAB PO STA (05:55)
[2022-08-24] MEDS ORDERED: ACETAMINOPHEN 325 MG TAB PO STA (05:55)
[2022-08-24] MEDS ORDERED: PROMETHAZINE HCL 12.5 MG in SODIUM CHLORIDE 0.9% 50 ML IV PRN (06:00)
[2022-08-24] MEDS ORDERED: oxyCODONE HCL IR 5 MG TAB (IMMEDIATE RELEASE) PO PRN (06:00)
[2022-08-24] MEDS ORDERED: PANTOprazole 80 MG in DEXTROSE 5% 100 ML IV STA (06:01)
--- NOTE | 2022-08-24 06:45 | CT Scan Report ---
Exam(s): CT ABDOMEN + PELVIS With Contrast IV Amt: 86 ML OPTIRAY 320 EXAM: CT Abdomen and Pelvis With Intravenous Contrast CLINICAL HISTORY: Reason for exam: abd pain. TECHNIQUE: Axial computed tomography images of the abdomen and pelvis with intravenous contrast. CTDI is 15.93 mGy and DLP is 861.74 mGy-cm. Automated exposure control was utilized for the study. A dose lowering technique was utilized adhering to the principles of ALARA. CONTRAST: Patient received 86 ML OPTIRAY 320 of IV contrast COMPARISON: No relevant prior studies available. FINDINGS: Lung bases: Unremarkable. No mass. No consolidation. ABDOMEN: Liver: Fatty liver. Subcentimeter cyst seen anteriorly in the right lobe of the liver. Gallbladder and bile ducts: Unremarkable. No calcified stones. No ductal dilation. Pancreas: Unremarkable. No mass. No ductal dilation. Spleen: Unremarkable. No splenomegaly. Adrenals: Unremarkable. No mass. Kidneys and ureters: Unremarkable. No solid mass. No hydronephrosis. Stomach and bowel: Moderate amount of fecal matter is seen in the colon. No obstruction. No mucosal thickening. PELVIS: Appendix: Normal appendix. Bladder: Unremarkable. No mass. Reproductive: Moderate prostatomegaly. ABDOMEN and PELVIS: Intraperitoneal space: Unremarkable. No free air. No significant fluid collection. Bones/joints: Mild degenerative disc disease changes seen in the lumbar spine. No acute fracture. No dislocation. Soft tissues: Unremarkable. Vasculature: Unremarkable. No abdominal aortic aneurysm. Lymph nodes: Unremarkable. No enlarged lymph nodes. IMPRESSION: 1. No acute abdominal process identified 2. Moderate amount of fecal matter in the colon which can be correlated with history of constipation Electronically signed by: Pascual Mccarty MD 08/24/22 06:44 AM
--- NOTE | 2022-08-24 07:22 | History & Physical Report ---
Date of Service August 24, 2022 Assessment & Plan (1) Syncope: Plan: Likely secondary to orthostasis given hypotension documented at the ER possible blood loss Hypovolemia from possible post EGD GI bleed, given new onset anemia recent mucosal resection for Peterson's esophagus Patient has not had a bowel movement at home and declines rectal exam to facilitate FOBT. hx diastolic dysfunction (EF 55 to 59%, TTE 2021) hx TIA as per records hyperlipidemia, statin Rx hx PSVT as per records prediabetes, hemoglobin A1c of 6.1 last June 2022 [place] on CPAP past tobacco abuse OBS Medical telemetry IVF Appropriate to hold home BP meds for now given borderline BP FOBT IV PPI bolus given possible UGIB given recent EGD and hemodynamic instability Clear liquid diet for now GI consult once with evidence of GI bleed Continue to hold home aspirin as per post EGD instructions Follow H&H, transfuse BBC if hemoglobin less than 8 and or for symptomatic anemia (hx TIA as per records) DVT prophylaxis. SCDs Re: Possible GI bleed Full code Patient requesting updates from providers. Miss Anne Nolasco, contact #[phone]. Text document was generated using makerist voice recognition software. It may contain grammatical or spelling errors. Kindly contact undersigned for clarification of any documentation item in question. History of Present Illness Chief Complaint: Syncope Primary Care Provider: Anne Santos DO History obtained from patient, family, and records. Medical history significant for diastolic dysfunction (EF 55 to 59%, TTE 2021), TIA as per records, hypertension, hyperlipidemia, SVT, Peterson's esophagus/GERD, prediabetes, [place] on CPAP, migraine, past tobacco abuse. Yesterday, patient underwent outpatient EGD for Pteerson's high-grade dysplasia at [facility]. Peterson's esophageal coastal changes noted. Subsequent mucosal resection done. Patient instructed to have full liquid diet postprocedure. Instructed to take Protonix 40 mg daily and sucralfate suspension 1 g p.o. 4 times daily for 2 weeks. No NSAIDs for 2 weeks. Epigastric discomfort postprocedure. No bowel movement since yesterday. No emesis. 2 witnessed syncopal events preceded by lightheadedness on getting up as per patient. Transient headache symptoms without trauma. No chest pain, no SOB. No witnessed seizures. Patient brought to ER for evaluation. Lowest SBP of 90s noted at the ER. Medical History as above Surgical History : Bladder surgery, tonsillectomy/adenoidectomy Family History : Dementia, heart disease Personal/Social history : Past tobacco abuse, occasional EtOH intake, retired from [employer] work/[employer] Allergies Allergy/AdvReac Type Severity Reaction Status Date / Time flaxseed Allergy edema Verified 08/24/22 00:56 petroleum distillate Allergy Severe Anaphylaxis Uncoded 08/24/22 00:55 Home Medications Medication Instructions Recorded Confirmed Type aspirin 81 mg tablet,delayed 81 mg PO DAILY 01/12/19 08/24/22 History release (Raghu Low Dose Aspirin) vitamin B complex 1 cap PO QAM 01/12/19 08/24/22 History amlodipine 2.5 mg tablet 2.5 mg PO QAM 08/24/22 08/24/22 History cholecalciferol (vitamin D3) 125 125 mcg PO QAM 08/24/22 08/24/22 History mcg (5,000 unit) tablet (Vitamin D3) epinephrine 0.3 mg/0.3 mL 0.3 mg IM UD PRN Anaphylaxis 08/24/22 08/24/22 History injection, auto-injector evening primrose oil 500 mg capsule 500 mg PO HS 08/24/22 08/24/22 History fluticasone propionate 50 2 spray intranasal DAILY PRN 08/24/22 08/24/22 History mcg/actuation nasal allergies spray,suspension pantoprazole 40 mg tablet,delayed 40 mg PO DAILYBB 08/24/22 08/24/22 History release polyethylene glycol 3350 17 gram 8.5 g PO BID 08/24/22 08/24/22 History oral powder packet (Miralax) rosuvastatin 10 mg tablet 10 mg PO QAM 08/24/22 08/24/22 History sucralfate 1 gram tablet (Carafate) 1 g PO ACHS 08/24/22 08/24/22 History terazosin 5 mg capsule 5 mg PO HS 08/24/22 08/24/22 History vit A 7,160 unit-C 113 mg-E 100 1 tab PO BID 08/24/22 08/24/22 History gipv-mtvr-xbshby tablet,delayed rel. vitamin K2 (MK-4) 100 mcg tablet 100 mcg PO HS 08/24/22 08/24/22 History Past Med/Surg History Medical History (Updated 08/24/22 @ 11:26 by Duc Casey MD) Dyslipidemia GERD (gastroesophageal reflux disease) Paroxysmal atrial fibrillation Social History (Updated 12/25/21 @ 13:09 by Duyen Donaldson MD) Smoking Status: Never smoker Preferred Language: Thai marital status: Feels Safe at Home: Yes Review of Systems Review of Systems: As per HPI, all other systems reviewed and negative Physical Exam Physical Exam: GENERAL: Slightly uncomfortable, obese, no respiratory distress SKIN: Pallor, warm HEENT: Bespectacled, pale palpebral conjunctivae, no ptosis, dry buccal mucosa NECK : Supple, short neck, no tenderness CHEST : CTA, no tenderness HEART : RRR, no obvious murmurs ABDOMEN: Some distention, minimal epigastric tenderness RECTAL : Refused EXTREMITIES : No LE swelling/tenderness, no other conspicuous deformities noted NEUROLOGIC : Coherent, no facial asymmetry, no other gross focality Results & Data Results & Data Vital Signs (Past 12 Hours) Vital Signs Temp Pulse Pulse Resp BP BP Pulse Ox 08/24/22 07:09 82 16 118/68 95 08/24/22 04:59 85 22 110/70 93 08/24/22 04:22 88 08/24/22 03:00 107 H 13 122/64 97 08/24/22 02:56 88 16 124/66 95 08/24/22 02:30 91 H 22 91/44 L 96 08/24/22 02:00 105 H 16 108/61 96 08/24/22 01:30 86 22 113/75 94 08/24/22 00:30 101 H 22 100/65 96 08/24/22 00:20 104 H 08/24/22 00:18 36.9 C 102 H 18 112/69 96 O2 Del Method 08/24/22 07:09 Room Air 08/24/22 04:59 Room Air 08/24/22 04:22 08/24/22 03:00 08/24/22 02:56 08/24/22 02:30 08/24/22 02:00 08/24/22 01:30 Room Air 08/24/22 00:30 08/24/22 00:20 08/24/22 00:18 Room Air Laboratory Results Laboratory Results WBC 9.21 K/ul (4.8-10.8) 08/24/22 00: RBC 4.03 M/uL (4.70-6.10) L 08/24/22 00: Hgb 12.8 g/dl (14.0-18.0) L 08/24/22 00: Hct 36.7 % (42.0-52.0) L 08/24/22 00: MCV 91.1 fL (80.0-100.0) 08/24/22 00: MCH 31.8 pg (25.0-34.0) 08/24/22 00: MCHC 34.9 g/dL (32.0-36.0) 08/24/22 00: RDW Std Deviation 40.8 fL (36.4-46.3) 08/24/22 00: RDW Coeff of Sana 12.4 % (11.5-14.5) 08/24/22 00: Plt Count 169 K/uL (130-400) 08/24/22 00: MPV 10.6 fL (9.4-12.4) 08/24/22 00: Immature Gran % (Auto) 0.3 % 08/24/22 00: Neut % (Auto) 74.8 % 08/24/22 00: Lymph % (Auto) 17.0 % 08/24/22 00: [place] % (Auto) 6.5 % 08/24/22 00: Eos % (Auto) 1.1 % 08/24/22 00: Baso % (Auto) 0.3 % 08/24/22 00: Neut # (Auto) 6.88 K/uL (1.40-6.50) H 08/24/22 00: Lymph # (Auto) 1.57 K/uL (1.2-3.4) 08/24/22 00: [place] # (Auto) 0.60 K/uL (0.11-0.59) H 08/24/22 00: Eos # (Auto) 0.10 K/uL (0-0.50) 08/24/22 00: Baso # (Auto) 0.03 K/uL (0-0.2) 08/24/22 00: Immature Gran # (Auto) 0.03 K/uL (0.01-0.20) 08/24/22 00:31 Sodium 137 mmol/L (136-145) 08/24/22 00:31 Potassium 4.4 mmol/L (3.5-5.1) 08/24/22 00:31 Chloride 108 mmol/L (98-107) H 08/24/22 00:31 Carbon Dioxide 22 mmol/L (21-32) 08/24/22 00:31 Anion Gap 7 (3-11) 08/24/22 00:31 BUN 45 mg/dl (6-23) H 08/24/22 00:31 Creatinine 1.01 mg/dl (0.6-1.4) 08/24/22 00:31 Est Cr Clr Drug Dosing 86.5 ml/min 08/24/22 00:31 Est GFR ( Amer) 88.2 ml/min 08/24/22 00:31 Est GFR (Non-Af Amer) 76.1 ml/min 08/24/22 00:31 BUN/Creatinine Ratio 44.6 (10-20) H 08/24/22 00:31 Glucose 147 mg/dl (70-99(Fasting)) H 08/24/22 00:31 Lactate 1.1 mmol/L (0.4-2.0) 08/24/22 06:59 Calcium 8.2 mg/dl (8.6-10.3) L 08/24/22 00:31 Magnesium 1.6 mg/dl (1.7-2.4) L 08/24/22 00:31 Total Bilirubin 0.8 mg/dl (0.2-1.0) 08/24/22 00:31 AST 17 U/L (13-39) 08/24/22 00:31 ALT 17 U/L (7-52) 08/24/22 00:31 Alkaline Phosphatase 38 U/L (34-104) 08/24/22 00:31 Troponin I High Sens 6.3 pg/ml (0-20) 08/24/22 00:31 Total Protein 5.8 gm/dl (6.0-8.3) L 08/24/22 00:31 Albumin 3.6 gm/dl (3.4-5.0) 08/24/22 00:31 Globulin 2.2 gm/dl (2.5-4.0) L 08/24/22 00:31 Albumin/Globulin Ratio 1.6 (0.9-2) 08/24/22 00:31 Lipase 24 U/L (11-82) 08/24/22 00:31 TSH 0.881 uIu/ml (0.300-4.500) 08/24/22 00:31 Urine Color Yellow 08/24/22 02:05 Urine Appearance Clear (Clear) 08/24/22 02:05 Urine pH 5.5 (4.5-7.5) 08/24/22 02:05 Ur Specific [place] 1.027 (1.000-1.030) 08/24/22 02:05 Urine Protein Negative (Negative) 08/24/22 02:05 Urine Glucose (UA) Negative (Negative) 08/24/22 02:05 Urine Ketones 1+ (Negative) H 08/24/22 02:05 Urine Blood Negative (Negative) 08/24/22 02:05 Urine Nitrite Negative (Negative) 08/24/22 02:05 Urine Bilirubin Negative (Negative) 08/24/22 02:05 Urine Urobilinogen Negative (Negative) 08/24/22 02:05 Ur Leukocyte Esterase Negative (Negative) 08/24/22 02:05 SARS-CoV-2, RNA, NAAT NEGATIVE (NEGATIVE) 08/24/22 02:46 Impressions Abdomen/Pelvis CT 08/24/22 02:56 Exam(s): CT ABDOMEN + PELVIS With Contrast IV Amt: 86 ML OPTIRAY 320 EXAM: CT Abdomen and Pelvis With Intravenous Contrast CLINICAL HISTORY: Reason for exam: abd pain. TECHNIQUE: Axial computed tomography images of the abdomen and pelvis with intravenous contrast. CTDI is 15.93 mGy and DLP is 861.74 mGy-cm. Automated exposure control was utilized for the study. A dose lowering technique was utilized adhering to the principles of ALARA. CONTRAST: Patient received 86 ML OPTIRAY 320 of IV contrast COMPARISON: No relevant prior studies available. FINDINGS: Lung bases: Unremarkable. No mass. No consolidation. ABDOMEN: Liver: Fatty liver. Subcentimeter cyst seen anteriorly in the right lobe of the liver. Gallbladder and bile ducts: Unremarkable. No calcified stones. No ductal dilation. Pancreas: Unremarkable. No mass. No ductal dilation. Spleen: Unremarkable. No splenomegaly. Adrenals: Unremarkable. No mass. Kidneys and ureters: Unremarkable. No solid mass. No hydronephrosis. Stomach and bowel: Moderate amount of fecal matter is seen in the colon. No obstruction. No mucosal thickening. PELVIS: Appendix: Normal appendix. Bladder: Unremarkable. No mass. Reproductive: Moderate prostatomegaly. ABDOMEN and PELVIS: Intraperitoneal space: Unremarkable. No free air. No significant fluid collection. Bones/joints: Mild degenerative disc disease changes seen in the lumbar spine. No acute fracture. No dislocation. Soft tissues: Unremarkable. Vasculature: Unremarkable. No abdominal aortic aneurysm. Lymph nodes: Unremarkable. No enlarged lymph nodes. IMPRESSION: 1. No acute abdominal process identified 2. Moderate amount of fecal matter in the colon which can be correlated with history of constipation Electronically signed by: Pascual Mccarty MD 08/24/22 06:44 AM Diagnostic Findings EKG as per my interpretation : Rate 105, sinus tachycardia, normal axis, septal infarct, no ischemia Code Status & VTE Plan VTE Prophylaxis Plan VTE Prophylaxis will be ordered: Yes
[2022-08-24 07:30] LABS: Hematocrit (blood only) 32.8 % (42.0-52.0); Hemoglobin 11.4 g/dl (14.0-18.0); Reticulocyte % 1.8 % (0.5-2.0); Reticulocytes # 0.06 10^6/uL (0.02-0.10)
[2022-08-24] MEDS ORDERED: FLUTICASONE PROPIONATE NA SPR 16 GM BTL PRN (07:57)
[2022-08-24 08:08] LABS: Ferritin 75.5 ng/ml (8-388)
[2022-08-24] MEDS: SUCRALFATE 1 GM TAB PO SCH ×2 (08:24→08:27)
--- NOTE | 2022-08-24 08:45 | XRay Report ---
PA CHEST RADIOGRAPH AND UPRIGHT AND SUPINE AP RADIOGRAPHS OF THE ABDOMEN CLINICAL HISTORY: Shortness of breath, recent endoscopy COMPARISON STUDY: Chest radiograph December 20, 2021. FINDINGS: Lung volumes are normal. There is no pneumothorax or pleural effusion. Cardiac size is nor mal. Mediastinal contours are normal. There is no free air. The bowel gas pattern is within normal li mits. Moderate amount of stool within the colon is present. No pneumomediastinum is identified by rad iography. IMPRESSION: 1. No free air or evidence of bowel obstruction. 2. No acute cardiopulmonary findings. ACT 112: Negative or not required by law. Electronically signed by: Harpal Chaves M.D. 08/24/2022 8:44 AM
[2022-08-24] MEDS ORDERED: VITAMIN B COMPLEX TAB PO SCH (09:00)
[2022-08-24] MEDS ORDERED: POLYETHYLENE (MIRALAX) 17 GM PACK PO SCH (09:00)
[2022-08-24] MEDS: SUCRALFATE 1 GM/10 ML UDC PO SCH ×4 (09:41→22:03)
--- NOTE | 2022-08-24 10:53 | Electrocardiogram Report ---
Test Reason : Blood Pressure : / mmHG Vent. Rate : 104 BPM Atrial Rate : 104 BPM P-R Int : 246 ms QRS Dur : 074 ms QT Int : 326 ms P-R-T Axes : 035 024 036 degrees QTc Int : 428 ms Sinus tachycardia with 1st degree A-V block with Premature supraventricular complexes Otherwise normal ECG When compared with ECG of 20-DEC-2021 18:50, HR has increased Confirmed by Timmy Stone ([id number]) on 08/24/2022 10:53:02 AM Referred By: REFERRED SELF Confirmed By:Timmy Stone
--- NOTE | 2022-08-24 12:10 | Gastrointestinal Consultation ---
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 Had some hypotension initially that improved and had a mild drop in HGB (HGB back up to 12, mild bump in BUN), and 1 episode of dark stool earlier this AM concerning for melena. Presentation concerning for possible UGIB. Currently he is not having any continued evidence of active GIB and he is hemodynamically stable with abd soft, nontender. - Please keep NPO - Supportive care with IVF - PPI bolus and gtt - Octreotide bolus and gtt - Erythromycin 500 mg now and repeat in the AM to help clear the stomach - Carafate 1 gm suspension QID - Trend H&H, transfuse PRN - No NSAIDS/ASA/AC please - Monitor and document GI output closely - Will reassess in the AM and decide whether repeat EGD is indicated at that time - I discussed with the hospitalist, GI attending and advanced endoscopist Thank you for allowing us to participate in the care of this patient. Please call with any acute changes, questions or concerns. Please see addendum below with additional recommendation from my supervising physician. Supervising Physician Co-Signing Physician Notes I have personally seen and examined the patient with Jocelyne De La Paz PA-C. Her note reflects my exam and findings. I agree with her impression and plan. UGI bleed in setting of mucosal resection of segment of Peterson's esophagus. Had one black BM. H/H currently stable. Discussed case with Dr. Rader who performed EGD with EMR. Plan as above. If develops signs and symptoms of aggressive GI bleeding may need IR intervention. Ronald Enciso M.D. History of Present Illness Reason for Consultation: melena, s/p EGD Requesting Physician: Dr. Abarca Attending Physician: Saul Abarca MD History of Present Illness This is a 66 y/o male with PMHx GERD, Peterson's, colon polyps, diastolic dysfunction (EF 55 to 59%, TTE 2021), TIA, HTN, HLD, SVT, prediabetes, [place] on CPAP, migraine, past tobacco abuse and others who presented to the ER overnight w/ syncopal/presyncopal episodes x 2 at home. Yesterday he had undergone EGD and mucosal resection of Peterson's esophagus with high grade dysplasia yesterday. He developed presyncopal symptoms and came to the ER. Systolics were in the 90's at one point but this has improved; now [id number]'s. Pulse in the low 100's. This AM had 1 large black loose "slurry" BM. No hematochezia, vomiting, hematemesis. Last evening had some midline chest discomfort but none now. He describes some vague upper abd pressure as "gas." This AM he had some breakfast including coffee and Miralax. Typically has constipation on a regular basis. Currently doesn't feel presyncopal. Baseline HGB is 15, baseline BUN is 20. Since arrival HGB 12.8-->11.3-->12.1 and BUN 45, crit 34.8, plt 169, WBC 9, Na 137, K 4.4. CXR w/ no free air, CTAP w/ moderate amount of fecal matter in the colon which can be correlated with history of constipation. EGD 08/23/2022: - Normal upper third of esophagus and middle third of esophagus. - Esophageal mucosal changes classified as Peterson's stage C0-M1 per [place] criteria. - Normal stomach. - Normal examined duodenum. - Mucosal resection was performed of a Barretts Tongue. Resection of the entire Barretts Segment was incomplete. The resected tissue was retrieved. EGD 06/15/2022: - Normal esophagus. - Esophageal mucosal changes secondary to established short-segment Peterson's disease, classified as Peterson's stage C0-M1 per [place] criteria. Biopsied. - A few gastric polyps. Biopsied. - Normal cardia, gastric body, incisura and antrum. - Normal examined duodenum A. Gastric polyps, polypectomy: Fundic gland polyp B. GE junction, biopsy: Squamocolumnar mucosa with intestinal metaplasia Focal high-grade dysplasia in the background of low-grade dysplasia Last colonoscopy 2020: - The examined portion of the ileum was normal. - One 5 mm polyp at 50 cm proximal to the anus, removed with a cold snare. Resected and retrieved. - One 5 mm polyp at 40 cm proximal to the anus, removed with a cold snare. Resected and retrieved. - The examination was otherwise normal on direct and retroflexion views. Allergies Allergy/AdvReac Type Severity Reaction Status Date / Time flaxseed Allergy edema Verified 08/24/22 00:56 petroleum distillate Allergy Severe Anaphylaxis Uncoded 08/24/22 00:55 Home Medications Medication Instructions Recorded Confirmed Type aspirin 81 mg tablet,delayed 81 mg PO DAILY 01/12/19 08/24/22 History release (Raghu Low Dose Aspirin) vitamin B complex 1 cap PO QAM 01/12/19 08/24/22 History amlodipine 2.5 mg tablet 2.5 mg PO QAM 08/24/22 08/24/22 History cholecalciferol (vitamin D3) 125 125 mcg PO QAM 08/24/22 08/24/22 History mcg (5,000 unit) tablet (Vitamin D3) epinephrine 0.3 mg/0.3 mL 0.3 mg IM UD PRN Anaphylaxis 08/24/22 08/24/22 History injection, auto-injector evening primrose oil 500 mg capsule 500 mg PO HS 08/24/22 08/24/22 History fluticasone propionate 50 2 spray intranasal DAILY PRN 08/24/22 08/24/22 History mcg/actuation nasal allergies spray,suspension pantoprazole 40 mg tablet,delayed 40 mg PO DAILYBB 08/24/22 08/24/22 History release polyethylene glycol 3350 17 gram 8.5 g PO BID 08/24/22 08/24/22 History oral powder packet (Miralax) rosuvastatin 10 mg tablet 10 mg PO QAM 08/24/22 08/24/22 History sucralfate 1 gram tablet (Carafate) 1 g PO ACHS 08/24/22 08/24/22 History terazosin 5 mg capsule 5 mg PO HS 08/24/22 08/24/22 History vit A 7,160 unit-C 113 mg-E 100 1 tab PO BID 08/24/22 08/24/22 History [id number] tablet,delayed rel. vitamin K2 (MK-4) 100 mcg tablet 100 mcg PO HS 08/24/22 08/24/22 History Patient History Medical History (Updated 08/24/22 @ 13:38 by Jocelyne De La Paz PA-C) Dyslipidemia GERD (gastroesophageal reflux disease) Paroxysmal atrial fibrillation Social History (Updated 12/25/21 @ 13:09 by Duyen Donaldson MD) Smoking Status: Never smoker Hx Alcohol Use: Yes Hx Substance Use: No Preferred Language: Sami Communication Ability: Effective marital status: Current Living Situation: Alone and Spouse Other Information That Helps Us Care for You: No Feels Safe at Home: No Is there a partner from a previous relationship who is making you feel unsafe now?: No Any Concerns about Your Family Situation: No Would You Like to Speak to Someone About Your Situation: No Safety Concerns: Feels Safe At This Time Assistive Devices: CPAP Review of Systems Review of Systems: All systems reviewed & are unremarkable except as noted in HPI & below Physical Exam Constitutional: well developed, well nourished and comfortable; no acute distress Eyes: Sclera anicteric, no conjunctival injection ENMT: moist mucous membranes, no pallor Neck: trachea midline supple Respiratory: normal respiratory effort, lungs clear to auscultation Cardiovascular: mildly tachycardic, regular rhythm, no edema Gastrointestinal (Abdomen): normal bowel sounds, soft, nontender, no hepatosplenomegaly Inspection/Auscultation: abdomen not distended Skin: no rashes, warm and dry Neurologic: alert and oriented x 3, no obvious focal neuro deficit Psychiatric: normal mood and affect Results & Data Vital Signs (Past 12 Hours) Vital Signs Temp Pulse Pulse Resp BP BP Pulse Ox 08/24/22 10:49 100 H 18 115/88 96 08/24/22 08:16 08/24/22 08:15 94 H 18 136/68 99 08/24/22 07:52 82 08/24/22 07:09 82 16 118/68 95 08/24/22 04:59 85 22 110/70 93 08/24/22 04:22 88 08/24/22 03:00 107 H 13 122/64 97 08/24/22 02:56 88 16 124/66 95 08/24/22 02:30 91 H 22 91/44 L 96 08/24/22 02:00 105 H 16 108/61 96 08/24/22 01:30 86 22 113/75 94 08/24/22 00:30 101 H 22 100/65 96 08/24/22 00:20 104 H 08/24/22 00:18 36.9 C 102 H 18 112/69 96 Pulse Ox O2 Del Method O2 Del Method 08/24/22 10:49 Room Air 08/24/22 08:16 99 Room Air 08/24/22 08:15 Room Air 08/24/22 07:52 08/24/22 07:09 Room Air 08/24/22 04:59 Room Air 08/24/22 04:22 08/24/22 03:00 08/24/22 02:56 08/24/22 02:30 08/24/22 02:00 08/24/22 01:30 Room Air 08/24/22 00:30 08/24/22 00:20 08/24/22 00:18 Room Air Laboratory Results 08/24/22 08/24/22 08/24/22 Range/Units 06:59 06:59 06:59 WBC (4.8-10.8) K/ul RBC (4.70-6.10) M/uL Hgb (14.0-18.0) g/dl Hct (42.0-52.0) % MCV (80.0-100.0) fL MCH (25.0-34.0) pg MCHC (32.0-36.0) g/dL RDW Std Deviation (36.4-46.3) fL RDW Coeff of Sana (11.5-14.5) % Plt Count (130-400) K/uL MPV (9.4-12.4) fL Immature Gran % (Auto) % Neut % (Auto) % Lymph % (Auto) % [place] % (Auto) % Eos % (Auto) % Baso % (Auto) % Reticulocyte % (Auto) (0.5-2.0) % Neut # (Auto) (1.40-6.50) K/uL Lymph # (Auto) (1.2-3.4) K/uL [place] # (Auto) (0.11-0.59) K/uL Eos # (Auto) (0-0.50) K/uL Baso # (Auto) (0-0.2) K/uL Reticulocyte # (0.02-0.10) 10^6/uL Immature Gran # (Auto) (0.01-0.20) K/uL Sodium (136-145) mmol/L Potassium (3.5-5.1) mmol/L Chloride (98-107) mmol/L Carbon Dioxide (21-32) mmol/L Anion Gap (3-11) BUN (6-23) mg/dl Creatinine (0.6-1.4) mg/dl Est Cr Clr Drug Dosing ml/min Est GFR ( Amer) ml/min Est GFR (Non-Af Amer) ml/min BUN/Creatinine Ratio (10-20) Glucose (70-99(Fasting)) mg/dl Lactate 1.1 (0.4-2.0) mmol/L Calcium (8.6-10.3) mg/dl Magnesium (1.7-2.4) mg/dl Iron 60 (35-175) mcg/dl Transferrin 169 L (200-360) mg/dl Ferritin 75.5 (8-388) ng/ml Total Bilirubin (0.2-1.0) mg/dl AST (13-39) U/L ALT (7-52) U/L Alkaline Phosphatase (34-104) U/L Troponin I High Sens (0-20) pg/ml Total Protein (6.0-8.3) gm/dl Albumin (3.4-5.0) gm/dl Globulin (2.5-4.0) gm/dl Albumin/Globulin Ratio (0.9-2) Lipase (11-82) U/L Vitamin B12 629 (180-914) pg/ml Folate 5.18 L (>5.38) ng/ml TSH (0.300-4.500) uIu/ml Urine Color Urine Appearance (Clear) Urine pH (4.5-7.5) Ur Specific [place] (1.000-1.030) Urine Protein (Negative) Urine Glucose (UA) (Negative) Urine Ketones (Negative) Urine Blood (Negative) Urine Nitrite (Negative) Urine Bilirubin (Negative) Urine Urobilinogen (Negative) Ur Leukocyte Esterase (Negative) SARS-CoV-2, RNA, NAAT (NEGATIVE) Blood Type Antibody Screen 08/24/22 08/24/22 08/24/22 Range/Units 06:59 06:59 02:46 WBC (4.8-10.8) K/ul RBC (4.70-6.10) M/uL Hgb 11.4 L (14.0-18.0) g/dl Hct 32.8 L (42.0-52.0) % MCV (80.0-100.0) fL MCH (25.0-34.0) pg MCHC (32.0-36.0) g/dL RDW Std Deviation (36.4-46.3) fL RDW Coeff of Sana (11.5-14.5) % Plt Count (130-400) K/uL MPV (9.4-12.4) fL Immature Gran % (Auto) % Neut % (Auto) % Lymph % (Auto) % [place] % (Auto) % Eos % (Auto) % Baso % (Auto) % Reticulocyte % (Auto) 1.8 (0.5-2.0) % Neut # (Auto) (1.40-6.50) K/uL Lymph # (Auto) (1.2-3.4) K/uL [place] # (Auto) (0.11-0.59) K/uL Eos # (Auto) (0-0.50) K/uL Baso # (Auto) (0-0.2) K/uL Reticulocyte # 0.06 (0.02-0.10) 10^6/uL Immature Gran # (Auto) (0.01-0.20) K/uL Sodium (136-145) mmol/L Potassium (3.5-5.1) mmol/L Chloride (98-107) mmol/L Carbon Dioxide (21-32) mmol/L Anion Gap (3-11) BUN (6-23) mg/dl Creatinine (0.6-1.4) mg/dl Est Cr Clr Drug Dosing ml/min Est GFR ( Amer) ml/min Est GFR (Non-Af Amer) ml/min BUN/Creatinine Ratio (10-20) Glucose (70-99(Fasting)) mg/dl Lactate (0.4-2.0) mmol/L Calcium (8.6-10.3) mg/dl Magnesium (1.7-2.4) mg/dl Iron (35-175) mcg/dl Transferrin (200-360) mg/dl Ferritin (8-388) ng/ml Total Bilirubin (0.2-1.0) mg/dl AST (13-39) U/L ALT (7-52) U/L Alkaline Phosphatase (34-104) U/L Troponin I High Sens (0-20) pg/ml Total Protein (6.0-8.3) gm/dl Albumin (3.4-5.0) gm/dl Globulin (2.5-4.0) gm/dl Albumin/Globulin Ratio (0.9-2) Lipase (11-82) U/L Vitamin B12 (180-914) pg/ml Folate (>5.38) ng/ml TSH (0.300-4.500) uIu/ml Urine Color Urine Appearance (Clear) Urine pH (4.5-7.5) Ur Specific [place] (1.000-1.030) Urine Protein (Negative) Urine Glucose (UA) (Negative) Urine Ketones (Negative) Urine Blood (Negative) Urine Nitrite (Negative) Urine Bilirubin (Negative) Urine Urobilinogen (Negative) Ur Leukocyte Esterase (Negative) SARS-CoV-2, RNA, NAAT NEGATIVE (NEGATIVE) Blood Type A Positive Antibody Screen NEGATIVE 08/24/22 08/24/22 08/24/22 Range/Units 02:05 00:31 00:31 WBC (4.8-10.8) K/ul RBC (4.70-6.10) M/uL Hgb (14.0-18.0) g/dl Hct (42.0-52.0) % MCV (80.0-100.0) fL MCH (25.0-34.0) pg MCHC (32.0-36.0) g/dL RDW Std Deviation (36.4-46.3) fL RDW Coeff of Sana (11.5-14.5) % Plt Count (130-400) K/uL MPV (9.4-12.4) fL Immature Gran % (Auto) % Neut % (Auto) % Lymph % (Auto) % [place] % (Auto) % Eos % (Auto) % Baso % (Auto) % Reticulocyte % (Auto) (0.5-2.0) % Neut # (Auto) (1.40-6.50) K/uL Lymph # (Auto) (1.2-3.4) K/uL [place] # (Auto) (0.11-0.59) K/uL Eos # (Auto) (0-0.50) K/uL Baso # (Auto) (0-0.2) K/uL Reticulocyte # (0.02-0.10) 10^6/uL Immature Gran # (Auto) (0.01-0.20) K/uL Sodium 137 (136-145) mmol/L Potassium 4.4 (3.5-5.1) mmol/L Chloride 108 H (98-107) mmol/L Carbon Dioxide 22 (21-32) mmol/L Anion Gap 7 (3-11) BUN 45 H (6-23) mg/dl Creatinine 1.01 (0.6-1.4) mg/dl Est Cr Clr Drug Dosing 86.5 ml/min Est GFR ( Amer) 88.2 ml/min Est GFR (Non-Af Amer) 76.1 ml/min BUN/Creatinine Ratio 44.6 H (10-20) Glucose 147 H (70-99(Fasting)) mg/dl Lactate (0.4-2.0) mmol/L Calcium 8.2 L (8.6-10.3) mg/dl Magnesium 1.6 L (1.7-2.4) mg/dl Iron (35-175) mcg/dl Transferrin (200-360) mg/dl Ferritin (8-388) ng/ml Total Bilirubin 0.8 (0.2-1.0) mg/dl AST 17 (13-39) U/L ALT 17 (7-52) U/L Alkaline Phosphatase 38 (34-104) U/L Troponin I High Sens 6.3 (0-20) pg/ml Total Protein 5.8 L (6.0-8.3) gm/dl Albumin 3.6 (3.4-5.0) gm/dl Globulin 2.2 L (2.5-4.0) gm/dl Albumin/Globulin Ratio 1.6 (0.9-2) Lipase 24 (11-82) U/L Vitamin B12 (180-914) pg/ml Folate (>5.38) ng/ml TSH 0.881 (0.300-4.500) uIu/ml Urine Color Yellow Urine Appearance Clear (Clear) Urine pH 5.5 (4.5-7.5) Ur Specific [place] 1.027 (1.000-1.030) Urine Protein Negative (Negative) Urine Glucose (UA) Negative (Negative) Urine Ketones 1+ H (Negative) Urine Blood Negative (Negative) Urine Nitrite Negative (Negative) Urine Bilirubin Negative (Negative) Urine Urobilinogen Negative (Negative) Ur Leukocyte Esterase Negative (Negative) SARS-CoV-2, RNA, NAAT (NEGATIVE) Blood Type Antibody Screen 08/24/22 Range/Units 00:31 WBC 9.21 (4.8-10.8) K/ul RBC 4.03 L (4.70-6.10) M/uL Hgb 12.8 L (14.0-18.0) g/dl Hct 36.7 L (42.0-52.0) % MCV 91.1 (80.0-100.0) fL MCH 31.8 (25.0-34.0) pg MCHC 34.9 (32.0-36.0) g/dL RDW Std Deviation 40.8 (36.4-46.3) fL RDW Coeff of Sana 12.4 (11.5-14.5) % Plt Count 169 (130-400) K/uL MPV 10.6 (9.4-12.4) fL Immature Gran % (Auto) 0.3 % Neut % (Auto) 74.8 % Lymph % (Auto) 17.0 % [place] % (Auto) 6.5 % Eos % (Auto) 1.1 % Baso % (Auto) 0.3 % Reticulocyte % (Auto) (0.5-2.0) % Neut # (Auto) 6.88 H (1.40-6.50) K/uL Lymph # (Auto) 1.57 (1.2-3.4) K/uL [place] # (Auto) 0.60 H (0.11-0.59) K/uL Eos # (Auto) 0.10 (0-0.50) K/uL Baso # (Auto) 0.03 (0-0.2) K/uL Reticulocyte # (0.02-0.10) 10^6/uL Immature Gran # (Auto) 0.03 (0.01-0.20) K/uL Sodium (136-145) mmol/L Potassium (3.5-5.1) mmol/L Chloride (98-107) mmol/L Carbon Dioxide (21-32) mmol/L Anion Gap (3-11) BUN (6-23) mg/dl Creatinine (0.6-1.4) mg/dl Est Cr Clr Drug Dosing ml/min Est GFR ( Amer) ml/min Est GFR (Non-Af Amer) ml/min BUN/Creatinine Ratio (10-20) Glucose (70-99(Fasting)) mg/dl Lactate (0.4-2.0) mmol/L Calcium (8.6-10.3) mg/dl Magnesium (1.7-2.4) mg/dl Iron (35-175) mcg/dl Transferrin (200-360) mg/dl Ferritin (8-388) ng/ml Total Bilirubin (0.2-1.0) mg/dl AST (13-39) U/L ALT (7-52) U/L Alkaline Phosphatase (34-104) U/L Troponin I High Sens (0-20) pg/ml Total Protein (6.0-8.3) gm/dl Albumin (3.4-5.0) gm/dl Globulin (2.5-4.0) gm/dl Albumin/Globulin Ratio (0.9-2) Lipase (11-82) U/L Vitamin B12 (180-914) pg/ml Folate (>5.38) ng/ml TSH (0.300-4.500) uIu/ml Urine Color Urine Appearance (Clear) Urine pH (4.5-7.5) Ur Specific [place] (1.000-1.030) Urine Protein (Negative) Urine Glucose (UA) (Negative) Urine Ketones (Negative) Urine Blood (Negative) Urine Nitrite (Negative) Urine Bilirubin (Negative) Urine Urobilinogen (Negative) Ur Leukocyte Esterase (Negative) SARS-CoV-2, RNA, NAAT (NEGATIVE) Blood Type Antibody Screen Diagnostic Findings CTAP ABDOMEN: Liver: Fatty liver. Subcentimeter cyst seen anteriorly in the right lobe of the liver. Gallbladder and bile ducts: Unremarkable. No calcified stones. No ductal dilation. Pancreas: Unremarkable. No mass. No ductal dilation. Spleen: Unremarkable. No splenomegaly. Adrenals: Unremarkable. No mass. Kidneys and ureters: Unremarkable. No solid mass. No hydronephrosis. Stomach and bowel: Moderate amount of fecal matter is seen in the colon. No obstruction. No mucosal thickening. PELVIS: Appendix: Normal appendix. Bladder: Unremarkable. No mass. Reproductive: Moderate prostatomegaly. ABDOMEN and PELVIS: Intraperitoneal space: Unremarkable. No free air. No significant fluid collection. Bones/joints: Mild degenerative disc disease changes seen in the lumbar spine. No acute fracture. No dislocation. Soft tissues: Unremarkable. Vasculature: Unremarkable. No abdominal aortic aneurysm. Lymph nodes: Unremarkable. No enlarged lymph nodes. IMPRESSION: 1. No acute abdominal process identified 2. Moderate amount of fecal matter in the colon which can be correlated with history of constipation CXR: FINDINGS: Lung volumes are normal. There is no pneumothorax or pleural effusion. Cardiac size is normal. Mediastinal contours are normal. There is no free air. The bowel gas pattern is within normal limits. Moderate amount of stool within the colon is present. No pneumomediastinum is identified by radiography. IMPRESSION: 1. No free air or evidence of bowel obstruction. 2. No acute cardiopulmonary findings.
[2022-08-24 12:52] LABS: Hematocrit (blood only) 34.8 % (42.0-52.0); Hemoglobin 12.1 g/dl (14.0-18.0)
[2022-08-24] MEDS ORDERED: PANTOPRAZOLE BOLUS/DRIP 1 EACH IV STA (13:10)
[2022-08-24] MEDS ORDERED: PANTOprazole 80 MG in DEXTROSE 5% 100 ML IV ONE (13:15)
[2022-08-24] MEDS ORDERED: STAT IV STA (13:16)
[2022-08-24] MEDS ORDERED: OCTREOTIDE ACETATE 50 MCG in SYRINGE 9.5 ML IV STA (13:17)
[2022-08-24] MEDS ORDERED: ERYTHROMYCIN 500 MG in SODIUM CHLORIDE 0.9% 250 ML IV SCH (13:30)
[2022-08-24] MEDS: OCTREOTIDE ACETATE 500 MCG in DEXTROSE 5% 100 ML IV SCH ×2 (14:08→22:58)
[2022-08-24] MEDS: PANTOprazole 40 MG in DEXTROSE 5% 100 ML IV SCH ×2 (14:08→21:38)
[2022-08-24] MEDS: D5W AND NSS 1,000 ML IV SCH (14:10)
[2022-08-24] MEDS: ACETAMINOPHEN 325 MG TAB PO PRN ×2 (16:09→22:03)
--- NOTE | 2022-08-24 16:47 | Hospitalist Progress Note ---
Date of Service August 24, 2022 Assessment & Plan (1) Syncope: Plan: Likely secondary to orthostasis given hypotension documented at the ER possible blood loss Hypovolemia from possible post EGD GI bleed, given new onset anemia recent mucosal resection for Peterson's esophagus Patient has not had a bowel movement at home and declines rectal exam to facilitate FOBT. hx diastolic dysfunction (EF 55 to 59%, TTE 2021) hx TIA as per records hyperlipidemia, statin Rx hx PSVT as per records prediabetes, hemoglobin A1c of 6.1 last June 2022 [place] on CPAP past tobacco abuse OBS Medical telemetry IVF Appropriate to hold home BP meds for now given borderline BP FOBT IV PPI bolus given possible UGIB given recent EGD and hemodynamic instability Clear liquid diet for now GI consult once with evidence of GI bleed Continue to hold home aspirin as per post EGD instructions Follow H&H, transfuse BBC if hemoglobin less than 8 and or for symptomatic anemia (hx TIA as per records) DVT prophylaxis. SCDs Re: Possible GI bleed Full code Patient requesting updates from providers. Miss Anne Nolasco, contact #[phone]. Text document was generated using [employer] voice recognition software. It may contain grammatical or spelling errors. Kindly contact undersigned for clarification of any documentation item in question. (2) Upper GI bleed: Plan: Status post EGD with resection of mucosa, Peterson's esophagus Positive melena x2 this morning Hemoglobin 12-11-12 Repeat hemoglobin this evening Discussed with GI service N.p.o. Protonix drip Octreotide drip Erythromycin Monitor closely Near syncope likely secondary to above Gentle IV fluids Hold BP medications hx diastolic dysfunction (EF 55 to 59%, TTE 2021) -patient the dry side hx TIA as per records -hold aspirin hyperlipidemia, statin Rx hx PSVT as per records prediabetes, hemoglobin A1c of 6.1 last June 2022 [place] on CPAP past tobacco abuse DVT prophylaxis. SCDs Re: Possible GI bleed Full code Disposition Anticipate discharge home medically plan of care discussed with patient in detail and at length all questions answered he is understanding, agreeable, comfortable with the plan of care Admission and Anticipated Discharge Date Admission Date: August 24, 2022 Subjective Follow-up for near syncope, possible upper GI bleed, etc. Seen sitting up in bed, comfortable, not in distress States he has been having melena x2 episodes since this morning No abdominal pain, nausea vomiting, fevers or chills Denies dizziness, chest pain, shortness of breath No other symptoms Review of Systems Review of Systems: all noted and negative except for above Physical Exam Physical Exam: General- oriented x 3, not in distress, speaks in sentences with no effort or accessory muscle use Eyes- anicteric Neck- no JVD Lungs- clear breath sounds bilaterally, no rales/wheezes Heart- normal rate, regular rhythm; no murmurs Abdomen- normal bowel sounds, nondistended, soft, nontender Extremities- no pretibial edema, no calf tenderness Neuro- alert, oriented x 3; no gross focal neurologic deficits Skin- warm & dry Results & Data Results & Data Vital Signs (Past 12 Hours) Vital Signs Temp Pulse Pulse Resp BP Pulse Ox Pulse Ox 08/24/22 15:56 37.7 C H 87 19 142/82 H 93 08/24/22 13:56 36.9 C 88 20 115/70 95 08/24/22 10:49 100 H 18 115/88 96 08/24/22 08:16 99 08/24/22 08:15 94 H 18 136/68 99 08/24/22 07:52 82 08/24/22 07:09 82 16 118/68 95 08/24/22 04:59 85 22 110/70 93 O2 Del Method O2 Del Method 08/24/22 15:56 Room Air 08/24/22 13:56 Room Air 08/24/22 10:49 Room Air 08/24/22 08:16 Room Air 08/24/22 08:15 Room Air 08/24/22 07:52 08/24/22 07:09 Room Air 08/24/22 04:59 Room Air all noted and reviewed including below
[2022-08-24 19:26] LABS: Hematocrit (blood only) 36.1 % (42.0-52.0); Hemoglobin 12.7 g/dl (14.0-18.0)
[2022-08-24] MEDS: POLYETHYLENE (MIRALAX) 17 GM PACK PO SCH (22:43)
[2022-08-25] MEDS: D5W AND NSS 1,000 ML IV SCH ×2 (00:15→08:47)
[2022-08-25] MEDS: LORazepam 0.5 MG TAB PO PRN ×2 (00:26→21:45)
[2022-08-25] MEDS: PANTOprazole 40 MG in DEXTROSE 5% 100 ML IV SCH ×5 (02:28→21:45)
[2022-08-25] MEDS ORDERED: PANTOprazole 40 MG TAB PO SCH (06:30)
[2022-08-25 06:52] LABS: Hemoglobin 11.4 g/dl (14.0-18.0); Mean Corpuscular Hemoglobin 31.5 pg (25.0-34.0); Mean Corpuscular Hgb Conc 34.5 g/dL (32.0-36.0); Mean Corpuscular Volume 91.2 fL (80.0-100.0); Mean Platelet Volume 10.3 fL (9.4-12.4); Platelet Count 169 K/uL (130-400); RDW Standard Deviation 42.6 fL (36.4-46.3); Red Blood Count 3.62 M/uL (4.70-6.10); White Blood Count 4.89 K/ul (4.8-10.8)
[2022-08-25 07:16] LABS: BUN Creatinine Ratio 22.9 (10-20); Calcium 8.3 mg/dl (8.6-10.3); Creatinine Clr Calc Pharmacy 68.5 ml/min; Est GFR (African American) 73.1 ml/min; Potassium 4.1 mmol/L (3.5-5.1)
[2022-08-25 07:34] LABS: Basophils # (auto) 0.04 K/uL (0-0.2); Basophils % (auto) 0.8 %; Eosinophils # (auto) 0.22 K/uL (0-0.50); Eosinophils % (auto) 4.5 %; Immature Granulocytes # (auto) 0.01 K/uL (0.01-0.20); Immature Granulocytes % (auto) 0.2 %; Lymphocytes # (auto) 2.51 K/uL (1.2-3.4); Lymphocytes % (auto) 51.3 %; Monocytes # (auto) 0.31 K/uL (0.11-0.59); Monocytes % (auto) 6.3 %; Neutrophils % (auto) 36.9 %; RBC Morphology Unremarkable
[2022-08-25] MEDS ORDERED: ERYTHROMYCIN 500 MG in SODIUM CHLORIDE 0.9% 250 ML IV ONE (08:00)
[2022-08-25] MEDS: SUCRALFATE 1 GM/10 ML UDC PO SCH ×4 (08:40→21:39)
[2022-08-25] MEDS: ROSUVASTATIN CALCIUM 10 MG TAB PO SCH (08:41)
[2022-08-25] MEDS: POLYETHYLENE (MIRALAX) 17 GM PACK PO SCH ×2 (08:41→21:38)
--- NOTE | 2022-08-25 08:42 | Gastroenterology Progress Note ---
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 Had one black BM yesterday. Overnight had no further GI output (no melena, hematochezia, hematemesis). H/H and BUN currently stable and VSS. Abd soft, nontender. - Can start clear liquids this AM as tolerated - Supportive care with IVF - Continue PPI gtt - Continue Octreotide gtt - Has received Erythromycin 500 mg x 2 - Continue Carafate 1 gm suspension QID - Trend H&H, transfuse PRN - No NSAIDS/ASA/AC please - Monitor and document GI output closely - I discussed with the hospitalist, GI attending and advanced endoscopist Thank you for allowing us to participate in the care of this patient. Please call with any acute changes, questions or concerns. Please see addendum below with additional recommendation from my supervising physician. Admission and Anticipated Discharge Date Admission Date: August 24, 2022 Supervising Physician Co-Signing Physician Notes I have personally seen and examined the patient with Jocelyne De La Paz PA-C. Her note reflects my exam and findings. I agree with her impression and plan. No signs of continued bleeding. Advance diet to soft only. Carafate as prescribed. Consider D/C home if stable over night. Ronald Enciso M.D. Subjective No acute events overnight. HGB stable; BUN downtrending. No further melena. VSS. No nausea, vomiting, abd pain, hematemesis, hematochezia, CP, SOB. Review of Systems Review of Systems: All systems reviewed & are unremarkable except as noted in HPI & below Physical Exam Constitutional: well developed, well nourished and comfortable; no acute distress Neck: trachea midline Respiratory: normal respiratory effort, lungs clear to auscultation Gastrointestinal (Abdomen): normal bowel sounds, soft, nontender, no hepatosplenomegaly Inspection/Auscultation: abdomen not distended Skin: no rashes, warm and dry Results & Data Vital Signs (Past 12 Hours) Vital Signs Temp Pulse Pulse Resp BP BP Pulse Ox 08/25/22 07:42 36.4 C L 73 18 115/74 97 08/25/22 03:00 36.3 C L 73 20 112/66 92 08/24/22 22:00 79 08/24/22 23:21 75 16 96 08/24/22 22:00 36.7 C 81 18 105/69 94 O2 Del Method FiO2 08/25/22 07:42 Room Air 08/25/22 03:00 Room Air 08/24/22 22:00 08/24/22 23:21 21 08/24/22 22:00 Room Air Laboratory Results 08/25/22 08/25/22 08/24/22 Range/Units 06:12 06:12 18:43 WBC 4.89 (4.8-10.8) K/ul RBC 3.62 L (4.70-6.10) M/uL Hgb 11.4 L 12.7 L (14.0-18.0) g/dl Hct 33.0 L 36.1 L (42.0-52.0) % MCV 91.2 (80.0-100.0) fL MCH 31.5 (25.0-34.0) pg MCHC 34.5 (32.0-36.0) g/dL RDW Std Deviation 42.6 (36.4-46.3) fL RDW Coeff of Sana 13.0 (11.5-14.5) % Plt Count 169 (130-400) K/uL MPV 10.3 (9.4-12.4) fL Immature Gran % (Auto) 0.2 % Neut % (Auto) 36.9 % Lymph % (Auto) 51.3 % [place] % (Auto) 6.3 % Eos % (Auto) 4.5 % Baso % (Auto) 0.8 % Neut # (Auto) 1.80 (1.40-6.50) K/uL Lymph # (Auto) 2.51 (1.2-3.4) K/uL [place] # (Auto) 0.31 (0.11-0.59) K/uL Eos # (Auto) 0.22 (0-0.50) K/uL Baso # (Auto) 0.04 (0-0.2) K/uL Immature Gran # (Auto) 0.01 (0.01-0.20) K/uL RBC Morphology Unremarkable Sodium 141 (136-145) mmol/L Potassium 4.1 (3.5-5.1) mmol/L Chloride 111 H (98-107) mmol/L Carbon Dioxide 27 (21-32) mmol/L Anion Gap 3 (3-11) BUN 27 H (6-23) mg/dl Creatinine 1.18 (0.6-1.4) mg/dl Est Cr Clr Drug Dosing 68.5 ml/min Est GFR ( Amer) 73.1 ml/min Est GFR (Non-Af Amer) 63.0 ml/min BUN/Creatinine Ratio 22.9 H (10-20) Glucose 122 H (70-99(Fasting)) mg/dl Calcium 8.3 L (8.6-10.3) mg/dl 08/24/22 Range/Units 12:12 WBC (4.8-10.8) K/ul RBC (4.70-6.10) M/uL Hgb 12.1 L (14.0-18.0) g/dl Hct 34.8 L (42.0-52.0) % MCV (80.0-100.0) fL MCH (25.0-34.0) pg MCHC (32.0-36.0) g/dL RDW Std Deviation (36.4-46.3) fL RDW Coeff of Sana (11.5-14.5) % Plt Count (130-400) K/uL MPV (9.4-12.4) fL Immature Gran % (Auto) % Neut % (Auto) % Lymph % (Auto) % [place] % (Auto) % Eos % (Auto) % Baso % (Auto) % Neut # (Auto) (1.40-6.50) K/uL Lymph # (Auto) (1.2-3.4) K/uL [place] # (Auto) (0.11-0.59) K/uL Eos # (Auto) (0-0.50) K/uL Baso # (Auto) (0-0.2) K/uL Immature Gran # (Auto) (0.01-0.20) K/uL RBC Morphology Sodium (136-145) mmol/L Potassium (3.5-5.1) mmol/L Chloride (98-107) mmol/L Carbon Dioxide (21-32) mmol/L Anion Gap (3-11) BUN (6-23) mg/dl Creatinine (0.6-1.4) mg/dl Est Cr Clr Drug Dosing ml/min Est GFR ( Amer) ml/min Est GFR (Non-Af Amer) ml/min BUN/Creatinine Ratio (10-20) Glucose (70-99(Fasting)) mg/dl Calcium (8.6-10.3) mg/dl
[2022-08-25] MEDS: OCTREOTIDE ACETATE 500 MCG in DEXTROSE 5% 100 ML IV SCH ×2 (08:47→18:21)
[2022-08-25] MEDS ORDERED: amLODIPine BESYLATE 5 MG TAB PO SCH (09:00)
--- NOTE | 2022-08-25 15:54 | Hospitalist Progress Note ---
Date of Service August 25, 2022 Assessment & Plan (1) Upper GI bleed: Plan: Status post EGD with resection of mucosa, Peterson's esophagus Positive melena x2 this morning Hemoglobin 12--12 5/5 Hemoglobin stable around 11-12 No recurrence of melena Discussed with GI service Soft diet today Continue with Protonix drip, Octreotide drip, erythromycin until tomorrow Hopefully discharge tomorrow morning if no recurrence of melena, hemoglobin stable Near syncope likely secondary to above Hold amlodipine hx diastolic dysfunction (EF 55 to 59%, TTE 2021) hx TIA as per records -hold aspirin hyperlipidemia, statin Rx hx PSVT as per records prediabetes, hemoglobin A1c of 6.1 last June 2022 [place] on CPAP past tobacco abuse DVT prophylaxis. SCDs Re: GI bleed Full code Disposition Anticipate discharge home tomorrow when medically stable plan of care discussed with patient in detail and at length all questions answered he is understanding, agreeable, comfortable with the plan of care Admission and Anticipated Discharge Date Admission Date: August 24, 2022 Subjective Follow-up for upper GI bleed, status post EGD, s/p resection of Peterson's esophagus, etc. Seen sitting up in bed, comfortable, not in distress States he feels fine overall Dizziness resolved, ambulating to the bathroom with no problems No BM since yesterday, last melena while at the ER yesterday afternoon Denies abdominal pain, has occasional nausea, no fevers or chills no chest pain, dyspnea, palpitations, dizziness no other symptoms Review of Systems Review of Systems: all noted and negative except for above Physical Exam Physical Exam: General- oriented x 3, not in distress, speaks in sentences with no effort or accessory muscle use Eyes- anicteric Neck- no JVD Lungs- clear breath sounds bilaterally, no rales/wheezes Heart- normal rate, regular rhythm; no murmurs Abdomen- normal bowel sounds, nondistended, soft, nontender Extremities- no pretibial edema, no calf tenderness Neuro- alert, oriented x 3; no gross focal neurologic deficits Skin- warm & dry Results & Data Results & Data Vital Signs (Past 12 Hours) Vital Signs Temp Pulse Pulse Resp BP Pulse Ox O2 Del Method 08/25/22 15:24 36.9 C 73 18 132/81 98 Room Air 08/25/22 11:15 37.0 C 71 16 132/73 97 Room Air 08/25/22 10:58 83 08/25/22 08:00 Room Air 08/25/22 07:42 36.4 C L 73 18 115/74 97 Room Air all noted and reviewed including below
[2022-08-25] MEDS: ACETAMINOPHEN 325 MG TAB PO PRN (21:46)
[2022-08-26] MEDS ORDERED: MELATONIN 3 MG TAB PO PRN (01:47)
[2022-08-26] MEDS: PANTOprazole 40 MG in DEXTROSE 5% 100 ML IV SCH ×2 (02:23→07:13)
[2022-08-26] MEDS ORDERED: MAGNESIUM SULFATE / D5W 1 GM/100 ML BAG IV ONE (03:38)
[2022-08-26] MEDS: OCTREOTIDE ACETATE 500 MCG in DEXTROSE 5% 100 ML IV SCH (04:18)
[2022-08-26 04:21] LABS: Magnesium 1.9 mg/dl (1.7-2.4)
[2022-08-26] MEDS: ROSUVASTATIN CALCIUM 10 MG TAB PO SCH (08:41)
[2022-08-26] MEDS: POLYETHYLENE (MIRALAX) 17 GM PACK PO SCH (08:41)
[2022-08-26] MEDS: SUCRALFATE 1 GM/10 ML UDC PO SCH ×2 (08:41→12:16)
[2022-08-26 09:46] LABS: Basophils # (auto) 0.03 K/uL (0-0.2); Basophils % (auto) 0.8 %; Eosinophils # (auto) 0.24 K/uL (0-0.50); Eosinophils % (auto) 6.1 %; Hematocrit (blood only) 30.3 % (42.0-52.0); Hemoglobin 10.8 g/dl (14.0-18.0); Immature Granulocytes # (auto) 0.01 K/uL (0.01-0.20); Immature Granulocytes % (auto) 0.3 %; Lymphocytes # (auto) 1.65 K/uL (1.2-3.4); Lymphocytes % (auto) 41.7 %; Mean Corpuscular Hemoglobin 32.5 pg (25.0-34.0); Mean Corpuscular Hgb Conc 35.6 g/dL (32.0-36.0); Mean Corpuscular Volume 91.3 fL (80.0-100.0); Mean Platelet Volume 10.1 fL (9.4-12.4); Monocytes % (auto) 7.6 %; Neutrophils # (auto) 1.73 K/uL (1.40-6.50); Neutrophils % (auto) 43.5 %; Platelet Count 157 K/uL (130-400); RDW Coefficient of Variation 12.6 % (11.5-14.5); RDW Standard Deviation 41.6 fL (36.4-46.3); Red Blood Count 3.32 M/uL (4.70-6.10); White Blood Count 3.96 K/ul (4.8-10.8)
--- NOTE | 2022-08-26 17:12 | Hospitalist Progress Note ---
Date of Service August 26, 2022 delayed entry date of service 08/28/22 Assessment & Plan (1) Upper GI bleed: Plan: Status post EGD with resection of mucosa, Peterson's esophagus Positive melena x2 morning of admission 08/26 GI service consulted Placed on Protonix drip, Octreotide drip, erythromycin Hemoglobin remained stable around 11-12 No recurrence of melena Diet slowly advanced Discharged on Protonix 40 mg p.o. twice daily x1 week, then daily Also on sucralfate 1 g 4 times daily x2 weeks Repeat CBC on follow-up with primary care physician in 1 week Follow-up with GI clinic as scheduled Near syncope likely secondary to above Blood pressure on the lower side Hold amlodipine Reevaluate on follow-up with primary care physician hx diastolic dysfunction (EF 55 to 59%, TTE 2021) --Euvolemic hx TIA as per records -hold aspirin times at least 1 week given GI bleed hyperlipidemia, statin Rx hx PSVT as per records prediabetes, hemoglobin A1c of 6.1 last June 2022 [place] on CPAP past tobacco abuse DVT prophylaxis. SCDs Re: GI bleed Full code Disposition Discharge to home Follow-up with PCP in 1 plan of care discussed with patient in detail and at length all questions answered he is understanding, agreeable, comfortable with the plan of care Admission and Anticipated Discharge Date Admission Date: August 24, 2022 Subjective Follow-up for GI bleed, etc. Seen resting in bed, sitting up, in good spirits Comfortable States he feels better overall Ambulating with no problems, no dizziness, weakness Abdominal pain, no melena or hematochezia No nausea or vomiting No other new symptoms States he is agreeable for discharge Review of Systems Review of Systems: all noted and negative except for above Physical Exam Physical Exam: General- oriented x 3, not in distress, speaks in sentences with no effort or accessory muscle use Eyes- anicteric Neck- no JVD Lungs- clear BS BL Heart- normal rate, regular rhythm; no murmurs Abdomen- normal bowel sounds, nondistended, soft, nontender Extremities- no pretibial edema, no calf tenderness Neuro- alert, oriented x 3; no gross focal neurologic deficits Skin- warm & dry Results & Data Results & Data Vital Signs (Past 12 Hours) Vital Signs Temp Pulse Pulse Resp BP BP Pulse Ox 08/26/22 11:31 37.0 C 65 18 121/77 95 08/26/22 10:44 36.9 C 63 18 108/68 124/76 97 08/26/22 08:30 08/26/22 07:39 36.9 C 63 18 108/68 97 08/26/22 07:00 63 O2 Del Method 08/26/22 11:31 Room Air 08/26/22 10:44 08/26/22 08:30 Room Air 08/26/22 07:39 Room Air 08/26/22 07:00 all noted and reviewed including below
--- NOTE | 2022-08-28 16:39 | Discharge Summary ---
Discharge Summary Date of Service August 28, 2022 delayed entry date of service 08/26/22 Notes For Next Care Provider Medication Changes From Visit New medications: Protonix 40 mg p.o. twice daily Sucralfate 1 g 4 times daily Discontinued medication: Amlodipine Admission HPI Per Admitting Provider History obtained from patient, family, and records. Medical history significant for diastolic dysfunction (EF 55 to 59%, TTE 2021), TIA as per records, hypertension, hyperlipidemia, SVT, Peterson's esophagus/GERD, prediabetes, [place] on CPAP, migraine, past tobacco abuse. Yesterday, patient underwent outpatient EGD for Peterson's high-grade dysplasia at [facility]. Peterson's esophageal coastal changes noted. Subsequent mucosal resection done. Patient instructed to have full liquid diet postprocedure. Instructed to take Protonix 40 mg daily and sucralfate suspension 1 g p.o. 4 times daily for 2 weeks. No NSAIDs for 2 weeks. Epigastric discomfort postprocedure. No bowel movement since yesterday. No emesis. 2 witnessed syncopal events preceded by lightheadedness on getting up as per patient. Transient headache symptoms without trauma. No chest pain, no SOB. No witnessed seizures. Patient brought to ER for evaluation. Lowest SBP of 90s noted at the ER. Medical History as above Surgical History : Bladder surgery, tonsillectomy/adenoidectomy Family History : Dementia, heart disease Personal/Social history : Past tobacco abuse, occasional EtOH intake, retired from [employer] work/[employer] Admission Exam Per Admitting Provider General- oriented x 3, not in distress, speaks in sentences with no effort or accessory muscle use Eyes- anicteric Neck- no JVD Lungs- clear BS BL Heart- normal rate, regular rhythm; no murmurs Abdomen- normal bowel sounds, nondistended, soft, nontender Extremities- no pretibial edema, no calf tenderness Neuro- alert, oriented x 3; no gross focal neurologic deficits Skin- warm & dry Principal Dx & Hospital Course #1 = Principal Diagnosis (1) Upper GI bleed: Status post EGD with resection of mucosa, Peterson's esophagus Positive melena x2 morning of admission 08/26 GI service consulted Placed on Protonix drip, Octreotide drip, erythromycin Hemoglobin remained stable around 11-12 No recurrence of melena Diet slowly advanced Discharged on Protonix 40 mg p.o. twice daily x1 week, then daily Also on sucralfate 1 g 4 times daily x2 weeks Repeat CBC on follow-up with primary care physician in 1 week Follow-up with GI clinic as scheduled Near syncope likely secondary to above Blood pressure on the lower side Hold amlodipine Reevaluate on follow-up with primary care physician hx diastolic dysfunction (EF 55 to 59%, TTE 2021) --Euvolemic hx TIA as per records -hold aspirin times at least 1 week given GI bleed hyperlipidemia, statin Rx hx PSVT as per records prediabetes, hemoglobin A1c of 6.1 last June 2022 [place] on CPAP past tobacco abuse DVT prophylaxis. SCDs Re: GI bleed Full code Disposition Discharge to home Follow-up with PCP in 1 plan of care discussed with patient in detail and at length all questions answered he is understanding, agreeable, comfortable with the plan of care Discharge Exam General- oriented x 3, not in distress, speaks in sentences with no effort or accessory muscle use Eyes- anicteric Neck- no JVD Lungs- clear BS BL Heart- normal rate, regular rhythm; no murmurs Abdomen- normal bowel sounds, nondistended, soft, nontender Extremities- no pretibial edema, no calf tenderness Neuro- alert, oriented x 3; no gross focal neurologic deficits Skin- warm & dry Updated Medication List Medication Instructions Recorded Confirmed Type aspirin 81 mg tablet,delayed 81 mg PO DAILY 01/12/19 08/24/22 History release (Raghu Low Dose Aspirin) vitamin B complex 1 cap PO QAM 01/12/19 08/24/22 History cholecalciferol (vitamin D3) 125 125 mcg PO QAM 08/24/22 08/24/22 History mcg (5,000 unit) tablet (Vitamin D3) epinephrine 0.3 mg/0.3 mL 0.3 mg IM UD PRN Anaphylaxis 08/24/22 08/24/22 History injection, auto-injector evening primrose oil 500 mg capsule 500 mg PO HS 08/24/22 08/24/22 History fluticasone propionate 50 2 spray intranasal DAILY PRN 08/24/22 08/24/22 History mcg/actuation nasal allergies spray,suspension polyethylene glycol 3350 17 gram 8.5 g PO BID 08/24/22 08/24/22 History oral powder packet (Miralax) rosuvastatin 10 mg tablet 10 mg PO QAM 08/24/22 08/24/22 History terazosin 5 mg capsule 5 mg PO HS 08/24/22 08/24/22 History vit A 7,160 unit-C 113 mg-E 100 1 tab PO BID 08/24/22 08/24/22 History gpbp-foju-meaduw tablet,delayed rel. vitamin K2 (MK-4) 100 mcg tablet 100 mcg PO HS 08/24/22 08/24/22 History folic acid 1 mg tablet 1,000 mcg PO DAILY 30 days #30 tabs 08/26/22 Rx pantoprazole 40 mg tablet,delayed 40 mg PO BID 30 days #0 tabs 08/26/22 08/24/22 Rx release sucralfate 1 gram tablet (Carafate) 1 g PO ACHS 14 days #0 tabs 08/26/22 08/24/22 Rx Hospital Stay Data Consultations 08/24/22 01:37 ED Decision to Admit Stat 08/24/22 13:10 Consult Gastroenterology Routine Diagnostic Imagining Performed 08/24/22 02:56 CT Abd and Pelvis [CT abd pelvis IV con only] Stat CLINICAL HISTORY: Reason for exam: abd pain. TECHNIQUE: Axial computed tomography images of the abdomen and pelvis with intravenous contrast. CTDI is 15.93 mGy and DLP is 861.74 mGy-cm. Automated exposure control was utilized for the study. A dose lowering technique was utilized adhering to the principles of ALARA. CONTRAST: Patient received 86 ML OPTIRAY 320 of IV contrast COMPARISON: No relevant prior studies available. FINDINGS: Lung bases: Unremarkable. No mass. No consolidation. ABDOMEN: Liver: Fatty liver. Subcentimeter cyst seen anteriorly in the right lobe of the liver. Gallbladder and bile ducts: Unremarkable. No calcified stones. No ductal dilation. Pancreas: Unremarkable. No mass. No ductal dilation. Spleen: Unremarkable. No splenomegaly. Adrenals: Unremarkable. No mass. Kidneys and ureters: Unremarkable. No solid mass. No hydronephrosis. Stomach and bowel: Moderate amount of fecal matter is seen in the colon. No obstruction. No mucosal thickening. PELVIS: Appendix: Normal appendix. Bladder: Unremarkable. No mass. Reproductive: Moderate prostatomegaly. ABDOMEN and PELVIS: Intraperitoneal space: Unremarkable. No free air. No significant fluid collection. Bones/joints: Mild degenerative disc disease changes seen in the lumbar spine. No acute fracture. No dislocation. Soft tissues: Unremarkable. Vasculature: Unremarkable. No abdominal aortic aneurysm. Lymph nodes: Unremarkable. No enlarged lymph nodes. IMPRESSION: 1. No acute abdominal process identified 2. Moderate amount of fecal matter in the colon which can be correlated with history of constipation Electronically signed by: Pascual Mccarty MD 08/24/22 06:44 AM Pending Results Patient Have Any Pending Studies at Discharge: No Discharge Instructions Given to Patient (Per Discharging Provider) PLEASE REFER TO YOUR NEW MEDICATION LIST AND FOLLOW INSTRUCTIONS CAREFULLY. YOUR NEW MEDICATIONS INCLUDE: Protonix 40 mg twice a day for 1 week, then daily - always take at least 30 minutes prior to meal Sucralfate 1 g 4 times a day x14 days Stop Amlodipine to prevent low blood pressure. PLEASE CALL YOUR PRIMARY CARE PHYSICIAN OR RETURN TO THE ER IF WITH WORSENING OF SYMPTOMS, INCLUDING Black or bloody stools, abdominal pain, nausea or vomiting, fevers or chills, shortness of breath, weakness, chest pain, palpitations, etc. FOLLOW UP WITH PRIMARY CARE PHYSICIAN OUTLINED ABOVE. FOLLOW-UP WITH GASTROENTEROLOGY CLINIC SCHEDULED. Total Time Total Time Spent Total Time Spent (In Minutes): >30 minutes
== END 2022-08-26 12:49 | disposition home or self-care (01) | DRG 312 ==
LOC: EDINP 00:06 → ED 00:06 → 2N 07:58